=== PATIENT | female | born 1990 | race African-American/Black ===

== ENCOUNTER 2017-06-07 10:51 | Emergency (ER) | payer OTHER ==
[~2017-06-07] VITALS: Ht 170.2 cm; Wt 190.0 kg
[~2017-06-07 10:51] MED LIST: HYDR-3533 PO
[2017-06-07 10:55] VITALS: BP 185/84; PULSE 82; RESP 24; TEMP 98.2; O2SAT 98
--- NOTE | 2017-06-07 11:54 | RADRPT ---
EXAM DATE/TIME: 06/07/2017 11:24 [facility] COMPARISON: CHEST SINGLE AP, June 07, 2015, 2:41. INDICATIONS : Chest pain. Dizziness. MEDICAL HISTORY : None. SURGICAL HISTORY : None. ENCOUNTER: Initial ACUITY: 1 day PAIN SCORE: 3/10 LOCATION: Bilateral chest FINDINGS: The heart is enlarged. Mild increased perihilar interstitial markings are noted consistent with mild pulmonary vascular congestion versus viral pneumonitis. Clinical correlation is recommended. There is elevation of the right hemidiaphragm. CONCLUSION: 1. Mild cardiomegaly. 2. Mild increased perihilar interstitial markings consistent with mild pulmonary vascular congestion versus viral pneumonitis. Clinical correlation is recommended. Jorge Velez MD on June 07, 2017 at 11:27 Board Certified Radiologist. This report was verified electronically.
[2017-06-07] MEDS ORDERED: SODIUM CHLOR 0.9% 1000 ML INJ 1,000 ML IV SCH (12:16)
--- NOTE | 2017-06-07 12:19 | PD ---
HPI Chief Complaint: Complaint Time Seen by Provider: 12:10 Travel History International Travel<30 days: No Contact w/Intl Traveler<30days: No Traveled to known affect area: No History of Present Illness HPI This is a 26-year-old female presents for evaluation. For the past 2 weeks she has been experiencing left-sided chest pain. The pain is a sharp pain that comes and goes spontaneously with no obvious aggravating or relieving factors. She was seen at [facility] she was told that this is likely muscle skeletal pain. She was prescribed naproxen. She was also given Cipro for presumed UTI. Her chest pain has persisted which prompted evaluation today. She denies cough, congestion or shortness of breath. She also reports that 3 days ago she was going to the bathroom when she passed a clot of blood vaginally. This only happened once and she is had no vaginal bleeding since then. She denies any dysuria, abdominal pain, nausea or vomiting, hematochezia , black or tarry stools. She reports that her last missed her period was 1.5 months ago. She has no other complaints at this time. [facility] Past Medical History Asthma: Yes Cancer: No Cardiovascular Problems: No Diminished Hearing: No Endocrine: No Genitourinary: No Immune Disorder: No Musculoskeletal: No Neurologic: No Psychiatric: No Reproductive: No Respiratory: Yes (ASTHMA) ?: Unknown : 0 Past Surgical History Cholecystectomy: Yes Pacemaker: No Other Surgery: No Social History Alcohol Use: No Tobacco Use: No Substance Use: No Allergies-Medications (Allergen,Severity, Reaction): Coded Allergies: No Known Allergies (Verified , 06/07/17) Reported Meds & Prescriptions Reported Meds & Active Scripts Active No Active Prescriptions or Reported Medications Review of Systems Except as stated in HPI: all other systems reviewed are Neg Physical Exam Narrative GENERAL: This is an obese female who is in no acute distress. Her BMI 65.6. SKIN: Warm and dry. HEAD: Atraumatic. Normocephalic. EYES: Pupils equal and round. No scleral icterus. No injection or drainage. ENT: No nasal bleeding or discharge. Mucous membranes pink and moist. NECK: Trachea midline. No JVD. CARDIOVASCULAR: Regular rate and rhythm. No murmur appreciated. RESPIRATORY: No accessory muscle use. Clear to auscultation. Breath sounds equal bilaterally. GASTROINTESTINAL: Abdomen soft, non-tender, nondistended. Hepatic and splenic margins not palpable. MUSCULOSKELETAL: No obvious deformities. There is tenderness to palpation to the left anterior chest wall. There is no lower extremity edema. NEUROLOGICAL: Awake and alert. No obvious cranial nerve deficits. Motor grossly within normal limits. Normal speech. PSYCHIATRIC: Appropriate mood and affect; insight and judgment normal. Data Data Last Documented VS Vital Signs Date Time Temp Pulse Resp B/P Pulse Ox O2 Delivery O2 Flow Rate FiO2 06/07/17 10:55 98.2 82 24 185/84 98 Room Air Orders Electrocardiogram (06/07/17 11:04) Complete Blood Count With Diff (06/07/17 11:04) Basic Metabolic Panel (Bmp) (06/07/17 11:04) Ckmb (Isoenzyme) Profile (06/07/17 11:04) Troponin I (06/07/17 11:04) Chest, Single Ap (06/07/17 11:04) Urinalysis - C+S If Indicated (06/07/17 12:12) Ed Urine Pregnancytest Poc (06/07/17 12:12) D-Dimer (06/07/17 12:16) Ketorolac Inj (Toradol Inj) (06/07/17 12:30) Sodium Chlor 0.9% 1000 Ml Inj (Ns 1000 M (06/07/17 12:16) B-Type Natriuretic Peptide (06/07/17 12:19) CKMB (06/07/17 12:05) CKMB% (06/07/17 12:05) Labs Laboratory Tests Test 06/07/17 06/07/17 12:05 13:30 White Blood Count 7.4 TH/MM3 Red Blood Count 5.11 MIL/MM3 Hemoglobin 12.9 GM/DL Hematocrit 40.4 % Mean Corpuscular Volume 79.0 FL Mean Corpuscular Hemoglobin 25.3 PG Mean Corpuscular Hemoglobin 32.0 % Concent Red Cell Distribution Width 15.2 % Platelet Count 205 TH/MM3 Mean Platelet Volume 8.1 FL Neutrophils (%) (Auto) 51.8 % Lymphocytes (%) (Auto) 34.2 % Monocytes (%) (Auto) 6.3 % Eosinophils (%) (Auto) 6.9 % Basophils (%) (Auto) 0.8 % Neutrophils # (Auto) 3.8 TH/MM3 Lymphocytes # (Auto) 2.5 TH/MM3 Monocytes # (Auto) 0.5 TH/MM3 Eosinophils # (Auto) 0.5 TH/MM3 Basophils # (Auto) 0.1 TH/MM3 CBC Comment DIFF FINAL Differential Comment D-Dimer Quantitative (PE/DVT) 0.41 MG/L FEU Sodium Level 141 MEQ/L Potassium Level 3.7 MEQ/L Chloride Level 105 MEQ/L Carbon Dioxide Level 28.1 MEQ/L Anion Gap 8 MEQ/L Blood Urea Nitrogen 10 MG/DL Creatinine 0.67 MG/DL Estimat Glomerular Filtration 130 ML/MIN Rate Random Glucose 96 MG/DL Calcium Level 8.9 MG/DL Total Creatine Kinase 133 U/L Creatine Kinase MB 0.5 NG/ML Troponin I LESS THAN 0.02 NG/ML B-Type Natriuretic Peptide 36 PG/ML Urine Color YELLOW Urine Turbidity HAZY Urine pH 6.0 Urine Specific [place] 1.018 Urine Protein NEG mg/dL Urine Glucose (UA) NEG mg/dL Urine Ketones NEG mg/dL Urine Occult Blood NEG Urine Nitrite NEG Urine Bilirubin NEG Urine Urobilinogen LESS THAN 2.0 MG/DL Urine Leukocyte Esterase MOD Urine RBC 1 /hpf Urine WBC 8 /hpf Urine Squamous Epithelial 7 /hpf Cells Urine Bacteria RARE /hpf Urine Mucus FEW /lpf Microscopic Urinalysis Comment CULT NOT INDICATED MDM Medical Decision Making Medical Screen Exam Complete: Yes Emergency Medical Condition: Yes Medical Record Reviewed: Yes Differential Diagnosis Costochondritis, pleurisy, pericarditis, myocarditis, pulmonary embolism, spontaneous pneumothorax, acute coronary syndrome Narrative Course 26-year-old female with reproducible left-sided chest wall pain for 3 weeks. She noted some vaginal bleeding one time 3 days ago with some clots noted. No recurrent vaginal bleeding. She appears well. She is morbidly obese. Plan is for basic lab work, EKG, chest x-ray, urinalysis and she was given Toradol and IV fluids. Her chest x-ray reveals mild cardiomegaly and mild increased perihilar interstitial markings consistent with mild pulmonary vascular congestion versus viral pneumonitis. A BNP was added on and was negative. The patient has been stable during her hospital stay. Her lab work is unremarkable. At this point in time the plan will be to have the patient follow -up with primary care physician in regards to the mild cardiomegaly, likely from patient echocardiogram. I did discuss this with the patient is agreeable. She is stable for discharge. Diagnosis Primary Impression: Chest wall pain Additional Impression: Cardiomegaly Additional Instructions: Take [id number] naproxen or ibuprofen as needed for discomfort per dosing instructions on the bottle. As discussed, follow-up with primary care physician regarding the finding of mild cardiomegaly on chest x-ray. Return for any emergent medical conditions. Med/Other Pt SpecificInfo: No Change to Meds Scripts No Active Prescriptions or Reported Meds Disposition: 01 DISCHARGE HOME Condition: Stable Steven Swenson Jun 07, 2017 12:19
[2017-06-07 12:20] LABS: AUTOMATED NEUTROPHIL # 3.8 TH/MM3 (1.8-7.7); BASOPHIL # 0.1 TH/MM3 (0-0.2); BASOPHIL % 0.8 % (0.0-2.0); EOSINOPHIL # 0.5 TH/MM3 (0-0.4); EOSINOPHIL % 6.9 % (0.0-4.0); HEMATOCRIT 40.4 % (35.0-46.0); HEMO FLAGS DIFF FINAL; LYMPH % 34.2 % (9.0-44.0); LYMPHOCYTE # 2.5 TH/MM3 (1.0-4.8); MEAN CORPUSCULAR HEMOGLOBIN 25.3 PG (27.0-34.0); MONO % 6.3 % (0.0-8.0); NEUT % 51.8 % (16.0-70.0); PLATELET COUNT 205 TH/MM3 (150-450); RED BLOOD COUNT 5.11 MIL/MM3 (4.00-5.30); RED CELL DISTRIBUTION WIDTH 15.2 % (11.6-17.2); WHITE BLOOD COUNT 7.4 TH/MM3 (4.0-11.0)
[2017-06-07] MEDS ORDERED: KETOROLAC TROMETHAMINE 30 MG/ML (IVP) VIAL IV PUSH ONE (12:30)
[2017-06-07 12:46] LABS: ANION GAP 8 MEQ/L (5-15); BICARBONATE 28.1 MEQ/L (21.0-32.0); BLOOD UREA NITROGEN 10 MG/DL (7-18); CHLORIDE 105 MEQ/L (98-107); GLOMERULAR FILTRATION RATE 130 ML/MIN (>89); POTASSIUM 3.7 MEQ/L (3.5-5.1); SODIUM (NA) 141 MEQ/L (136-145)
[2017-06-07 12:49] LABS: CREATINE KINASE 133 U/L (26-192)
[2017-06-07 13:02] LABS: CKMB 0.5 NG/ML (0.5-3.6)
[2017-06-07 14:15] LABS: BACTERIA, URINE RARE /hpf; BLOOD, URINE NEG (NEG); COMMENT (UR) CULT NOT INDICATED; CULTURE IF INDICATED CULT NOT INDICATED; GLUCOSE,URINE NEG (NEG); KETONE, URINE NEG (NEG); MUCUS URINE FEW /lpf (OCC); NITRITE,URINE NEG (NEG); SQUAMOUS EPITHELIAL CELL URINE 7 /hpf (0-5); URINE COLOR YELLOW (YELLW/STRAW)
--- NOTE | 2017-06-08 12:04 | EKG ---
Date Performed: 06/07/2017 Time Performed: 11:44:40 PTAGE: 26 years EKG: Sinus rhythm NORMAL ECG PREVIOUS TRACING : 06/07/2015 02.36 Compared to prior tracing no significant change DOCTOR: Ezequiel Hernandez Interpretating Date/Time 06/08/2017 12:03:03
== END 2017-06-07 15:09 | disposition home or self-care (01) ==
LOC: NEPE 10:51
DX: R07.89 Other chest pain (principal); I51.7 Cardiomegaly; E66.01 Morbid (severe) obesity due to excess calories; J45.909 Unspecified asthma, uncomplicated
CPT/HCPCS: 71010; 80048; 81001; 82550; 82552; 83880; 84484; 84703; 85025; 85379; 93005; 96361; 96374; 99285; J1885; J7030

== ENCOUNTER 2017-06-16 23:52 | Emergency (ER) | payer OTHER ==
[2017-06-16 23:54] VITALS: BP 143/90; PULSE 109; RESP 24; TEMP 98.5; O2SAT 100
[2017-06-17 00:44] VITALS: O2SAT 100
[2017-06-17 00:49] VITALS: BP 129/73; PULSE 96; RESP 38; O2SAT 100
[2017-06-17 00:55] VITALS: O2SAT 98
[2017-06-17] MEDS ORDERED: RESP: ALBUTEROL 2.5 MG/IPRATROPIUM 0.5 MG NEB (SCH) INH (01:00)
[2017-06-17] MEDS ORDERED: methylPREDNISolone SOD SUCC 125 MG/2 ML VIAL IVP ONE (01:00)
[2017-06-17] MEDS ORDERED: SODIUM CHLORIDE 0.9% FLUSH 10 ML FLUSH IVF PRN (01:00)
[2017-06-17 01:11] LABS: AUTOMATED NEUTROPHIL # 4.4 TH/MM3 (1.8-7.7); BASOPHIL # 0.1 TH/MM3 (0-0.2); EOSINOPHIL # 0.7 TH/MM3 (0-0.4); EOSINOPHIL % 7.5 % (0.0-4.0); HEMATOCRIT 37.8 % (35.0-46.0); HEMO FLAGS DIFF FINAL; LYMPHOCYTE # 3.8 TH/MM3 (1.0-4.8); MEAN CORPUSCULAR HEMOGLOBIN 25.4 PG (27.0-34.0); MEAN CORPUSCULAR HGB CONC 33.1 % (32.0-36.0); MONO % 6.8 % (0.0-8.0); NEUT % 45.7 % (16.0-70.0); PLATELET COUNT 201 TH/MM3 (150-450); RED BLOOD COUNT 4.91 MIL/MM3 (4.00-5.30); RED CELL DISTRIBUTION WIDTH 14.8 % (11.6-17.2); WHITE BLOOD COUNT 9.7 TH/MM3 (4.0-11.0)
[2017-06-17 01:15] VITALS: BP 195/108; PULSE 115; RESP 38; O2SAT 98
[2017-06-17 01:23] VITALS: BP 144/115; PULSE 93; RESP 38; O2SAT 100
[2017-06-17 01:23] LABS: BICARBONATE 27.9 MEQ/L (21.0-32.0); POTASSIUM 3.8 MEQ/L (3.5-5.1)
--- NOTE | 2017-06-17 01:27 | RADRPT ---
EXAM DATE/TIME: 06/17/2017 01:06 [facility] COMPARISON: CHEST SINGLE AP, June 07, 2017, 11:24. INDICATIONS : Shortness of breath starting today MEDICAL HISTORY : None. SURGICAL HISTORY : None. ENCOUNTER: Initial ACUITY: 1 day PAIN SCORE: 0/10 LOCATION: Bilateral chest FINDINGS: A single AP portable erect view of the chest demonstrates the lungs to be symmetrically aerated witho ut evidence of mass, infiltrate or effusion. There is soft tissue attenuation from overlying breast t issue. The cardiomediastinal contours are unremarkable. Osseous structures are intact. CONCLUSION: No acute disease. Roman Coulter MD on June 17, 2017 at 1:25 Board Certified Radiologist. This report was verified electronically.
[2017-06-17] MEDS ORDERED: LORazepam 2 MG/ML VIAL IV PUSH ONE (01:30)
[2017-06-17 01:42] VITALS: PULSE 89; RESP 22; O2SAT 100
[2017-06-17] MEDS ORDERED: ALBUAER3 INH (01:53)
[2017-06-17] MEDS ORDERED: PRED20 PO (01:53)
--- NOTE | 2017-06-17 01:54 | PD ---
HPI Chief Complaint: Respiratory Distress Time Seen by Provider: 00:51 Travel History International Travel<30 days: No Contact w/Intl Traveler<30days: No Traveled to known affect area: No History of Present Illness HPI 36-year-old female arrives with shortness of breath and wheezing. She has a history of asthma. Symptoms began this morning. She was seen in an outside hospital in symptoms improved only marginally thereafter. She does not recall last time she is to steroids. She has no chest pain. Occasional cough is reported by the significant other. Location respiratory. Severity moderate. PFSH Past Medical History Asthma: Yes Cancer: No Cardiovascular Problems: No Diminished Hearing: No Endocrine: No Genitourinary: No Immune Disorder: No Musculoskeletal: No Neurologic: No Psychiatric: No Reproductive: No Respiratory: Yes (ASTHMA) ?: Not LMP: 06/16/17 : 0 Past Surgical History Cholecystectomy: Yes Pacemaker: No Other Surgery: No Social History Alcohol Use: No Tobacco Use: No (never) Substance Use: No Allergies-Medications (Allergen,Severity, Reaction): Coded Allergies: No Known Allergies (Verified , 06/17/17) Reported Meds & Prescriptions Reported Meds & Active Scripts Active Proair Hfa 8.5 GM Inh (Albuterol Sulfate) 90 Mcg/Act Aer 2 Puff INH Q4-6H PRN 108 mcg/actuation Prednisone 20 Mg Tab 40 Mg PO DAILY 4 Days Take 40 mg (2 tablets) daily for 5 days Review of Systems Except as stated in HPI: all other systems reviewed are Neg General / Constitutional: No: Fever Respiratory: Positive: Cough, Shortness of Breath, Wheezing Physical Exam Narrative GENERAL: 26-year-old female BMI greater than 40 respiratory distress of moderate severity speaking short sentences SKIN: Focused skin assessment warm/dry. HEAD: Atraumatic. Normocephalic. EYES: Pupils equal and round. No scleral icterus. No injection or drainage. ENT: No nasal bleeding or discharge. Mucous membranes pink and moist. NECK: Trachea midline. No JVD. CARDIOVASCULAR: Tachycardia to about 100. RESPIRATORY: Wheezing present bilaterally. Tachypnea to about 30. GASTROINTESTINAL: Abdomen soft, non-tender, nondistended. Hepatic and splenic margins not palpable. MUSCULOSKELETAL: No obvious deformities. No clubbing. No cyanosis. No edema. NEUROLOGICAL: Awake and alert. No obvious cranial nerve deficits. Motor grossly within normal limits. Normal speech. PSYCHIATRIC: Appropriate mood and affect; insight and judgment normal. Data Data Last Documented VS Vital Signs Date Time Temp Pulse Resp B/P Pulse Ox O2 Delivery O2 Flow Rate FiO2 06/17/17 01:42 89 22 100 Nasal Cannula 06/17/17 01:23 144/115 2 06/17/17 00:44 21 06/16/17 23:54 98.5 Vital signs reviewed Orders Complete Blood Count With Diff (06/17/17 00:51) Basic Metabolic Panel (Bmp) (06/17/17 00:51) Iv Access Insert/Monitor (06/17/17 00:51) Electrocardiogram (06/17/17 00:51) Ecg Monitoring (06/17/17 00:51) Oximetry (06/17/17 00:51) Oxygen Administration (06/17/17 00:51) Chest, Single Ap (06/17/17 00:51) Sodium Chloride 0.9% Flush (Ns Flush) (06/17/17 01:00) Methylprednisolone So Succ Inj (Solumedr (06/17/17 01:00) Albuterol-Ipratropium Neb (Duoneb Neb) (06/17/17 01:00) Lorazepam Inj (Ativan Inj) (06/17/17 01:30) Albuterol Hfa Inh (Proair Hfa Inh) (06/17/17 02:15) Labs Laboratory Tests Test 06/17/17 00:35 White Blood Count 9.7 TH/MM3 Red Blood Count 4.91 MIL/MM3 Hemoglobin 12.5 GM/DL Hematocrit 37.8 % Mean Corpuscular Volume 77.0 FL Mean Corpuscular Hemoglobin 25.4 PG Mean Corpuscular Hemoglobin 33.1 % Concent Red Cell Distribution Width 14.8 % Platelet Count 201 TH/MM3 Mean Platelet Volume 9.1 FL Neutrophils (%) (Auto) 45.7 % Lymphocytes (%) (Auto) 39.0 % Monocytes (%) (Auto) 6.8 % Eosinophils (%) (Auto) 7.5 % Basophils (%) (Auto) 1.0 % Neutrophils # (Auto) 4.4 TH/MM3 Lymphocytes # (Auto) 3.8 TH/MM3 Monocytes # (Auto) 0.7 TH/MM3 Eosinophils # (Auto) 0.7 TH/MM3 Basophils # (Auto) 0.1 TH/MM3 CBC Comment DIFF FINAL Differential Comment Sodium Level 140 MEQ/L Potassium Level 3.8 MEQ/L Chloride Level 104 MEQ/L Carbon Dioxide Level 27.9 MEQ/L Anion Gap 8 MEQ/L Blood Urea Nitrogen 12 MG/DL Creatinine 0.67 MG/DL Estimat Glomerular Filtration 130 ML/MIN Rate Random Glucose 91 MG/DL Calcium Level 8.9 MG/DL MDM Medical Decision Making Medical Screen Exam Complete: Yes Emergency Medical Condition: Yes Medical Record Reviewed: Yes Differential Diagnosis Asthma exacerbation, pneumonia, anemia, renal failure, restrictive airway disease due to body habitus Narrative Course CBC & BMP Diagram 06/17/17 00:35 Last 24 hours Impressions Chest X-Ray 06/17/17 0051 Signed Impressions: Service Date/Time: , June 17, 2017 01:06 - CONCLUSION: No acute disease. Roman Coulter MD Patient reassessed at 1:30 AM and was found resting comfortably. She had received 0.5 mg IV Ativan and felt much better. 2 rounds DuoNeb and 125 mg IV Solu-Medrol given. 0220: Continued improvement observed. The patient has follow-up with Dr. Alejandro Justin. We'll discharge with prednisone and albuterol inhaler. Diagnosis Primary Impression: Asthma Qualified Code: J45.909 - Uncomplicated asthma, unspecified asthma severity Referrals: Primary Care Physician 2 days Additional Instructions: You have a choice when it comes to health care, and we are glad that you chose [facility]. Hopefully, we have met your expectations on today's visit. You are welcome to return to [facility] at any time, as we are committed to meeting the health care needs of our community. Med/Other Pt SpecificInfo: Prescription(s) given Scripts Albuterol 8.5 GM Inh (Proair Hfa 8.5 GM Inh)90 Mcg/Act Aer2 Puff INH Q4-6H PRN ( SHORTNESS OF BREATH) #1 INHALER Ref 0 108 mcg/actuation Prov:Kenroy Romeo MD 06/17/17 Prednisone 20 Mg Tab40 Mg PO DAILY 4 Days Ref 0 Take 40 mg (2 tablets) daily for 5 days Prov:Kenroy Romeo MD 06/17/17 Disposition: 01 DISCHARGE HOME Condition: Stable Kenroy Romeo MD Jun 17, 2017 01:54
[2017-06-17] MEDS ORDERED: ALBUTEROL SULFATE 90 MCG/ACT HFA 8 GM INHALER INH ONE (02:15)
--- NOTE | 2017-06-17 14:55 | EKG ---
Date Performed: 06/17/2017 Time Performed: 00:47:28 PTAGE: 26 years EKG: SINUS TACHYCARDIA ABNORMAL RHYTHM ECG PREVIOUS TRACING : 06/07/2017 11.44 Since previous tracing, no significant change noted DOCTOR: Emily Oliver Interpretating Date/Time 06/17/2017 14:54:16
== END 2017-06-17 02:56 | disposition home or self-care (01) ==
LOC: NEPE 23:52
DX: J45.909 Unspecified asthma, uncomplicated (principal)
CPT/HCPCS: 71010; 80048; 85025; 93005; 94640; 94664; 96374; 96375; 99285; J2060; J2930

== ENCOUNTER 2017-08-17 23:35 | Emergency (ER) | payer OTHER ==
[~2017-08-17] VITALS: Ht 170.2 cm; Wt 220.0 kg
[~2017-08-17 23:35] MED LIST changes: +ALBUAER3 INH; -HYDR-3533 PO; +PRED20 PO
[2017-08-17 23:37] VITALS: BP 174/100; PULSE 108; PULSE 18; RESP 20; TEMP 98.4; O2SAT 99
[2017-08-17] MEDS ORDERED: CYCL1TAB29 PO (23:55)
[2017-08-17] MEDS ORDERED: DICL75TA PO (23:55)
--- NOTE | 2017-08-17 23:58 | PD ---
HPI Chief Complaint: Back/ Neck Pain or Injury Time Seen by Provider: 23:50 Travel History International Travel<30 days: No Contact w/Intl Traveler<30days: No Traveled to known affect area: No History of Present Illness HPI 26-year-old black female presents to emergency Department with complaints of back pain. She states that for last 2 weeks she's had persistent lower back pain worse with bending and movement. Some relief of remaining still. She denies any injury or trauma. She denies any prior history of back problems. She also goes on to state that she had a sore throat earlier and had an episode of vomiting a couple days ago. She states that the vomiting has subsided and her throat is improving. She denies any fever or chills. No abdominal pain or urinary symptoms. She does report the pain radiating from her back into her hips. [facility] Past Medical History Narrative Medical Asthma Asthma: Yes Cancer: No Cardiovascular Problems: No Diminished Hearing: No Endocrine: No Genitourinary: No Immune Disorder: No Musculoskeletal: No Neurologic: No Psychiatric: No Reproductive: No Respiratory: Yes (ASTHMA) Tetanus Vaccination: < 5 Years ?: Unknown LMP: 05/15/2017 : 0 Past Surgical History Cholecystectomy: Yes Pacemaker: No Other Surgery: No Social History Alcohol Use: No Tobacco Use: No (never) Substance Use: No Allergies-Medications (Allergen,Severity, Reaction): Coded Allergies: No Known Allergies (Verified , 08/17/17) Reported Meds & Prescriptions Reported Meds & Active Scripts Active Flexeril (Cyclobenzaprine HCl) 10 Mg Tab 10 Mg PO TID Diclofenac Sodium DR (Diclofenac Sodium) 75 Mg Tabdr 75 Mg PO BID Review of Systems Except as stated in HPI: all other systems reviewed are Neg Physical Exam Narrative GENERAL: Well-developed, morbidly obese in no acute distress. Nontoxic appearing. HEAD: Normocephalic, atraumatic. EYES: Pupils equal round and reactive. Extraocular motions intact. No scleral icterus. No injection or drainage. ENT: TMs clear without erythema. The external auditory canals clear. Nose: clear . Posterior pharynx is pink and moist. No tonsillar edema or exudate. Uvula midline. Airway patent. NECK: Trachea midline.Supple, nontender, moves head freely. No central bony tenderness or spasm. CARDIOVASCULAR: Regular rate and rhythm without murmurs, gallops, or rubs. RESPIRATORY: Clear to auscultation. Breath sounds equal bilaterally. No wheezes , rales, or rhonchi. GASTROINTESTINAL: Abdomen soft, non-tender, nondistended. No hepato-splenomegaly , or palpable masses. No guarding. EXTREMITIES: No clubbing, cyanosis, or edema. No joint tenderness, effusion, or edema noted. BACK: No central bony tenderness to palpation of dorsal lumbar spine. Patient complains of paralumbar tenderness more so on the left than the right. She has decreased for flexion to 70. No saddle anesthesia. Without deformity or crepitance. No flank tenderness. Data Data Last Documented VS Vital Signs Date Time Temp Pulse Resp B/P (MAP) Pulse Ox O2 Delivery O2 Flow Rate FiO2 08/17/17 23:37 98.4 108 20 174/100 (124) 99 Orders Orders Ibuprofen (Motrin) (08/18/17 00:00) Cyclobenzaprine (Flexeril) (08/18/17 00:00) MDM Medical Decision Making Medical Screen Exam Complete: Yes Emergency Medical Condition: Yes Medical Record Reviewed: Yes Differential Diagnosis MDM: High Differential diagnoses: AAA,Fracture, sprain, strain, HNP, nerve or vascular injury, epidural abscess, pilonidal cyst, pyelonephritis, UTI, nephrolithiasis, ureterolithiasis, pharyngitis Narrative Course Patient's given Motrin 800 mg and Flexeril 10 mg by mouth. Her pharynx looks normal. Patient has myofascial back pain. Patient is discharged in stable condition. This is acute back pain, viral pharyngitis Diagnosis Primary Impression: Acute back pain Qualified Codes: M54.42 - Lumbago with sciatica, left side; M54.41 - Lumbago with sciatica, right side Additional Impression: Viral pharyngitis Patient Instructions: General Instructions Additional Instructions: Rest. Ice for the next 3 days followed by heat . Flexeril and Voltaren. Follow-up with a primary care doctor in one week. Return to the ER for emergencies. Med/Other Pt SpecificInfo: Prescription(s) given Scripts Cyclobenzaprine (Flexeril) 10 Mg Tab 10 MG PO TID for Muscle Spasm, #30 TAB 0 Refills Prov: Francisco J Baird MD 08/17/17 Diclofenac Sodium (Diclofenac Sodium DR) 75 Mg Tabdr 75 MG PO BID, #20 TAB 0 Refills Prov: Francisco J Baird MD 08/17/17 Disposition: 01 DISCHARGE HOME Condition: Stable Audi Merrill Aug 17, 2017 23:58
[2017-08-18] MEDS ORDERED: CYCLOBENZAPRINE HCL 10 MG TAB PO ONE
[2017-08-18] MEDS ORDERED: IBUPROFEN 800 MG TAB PO ONE
== END 2017-08-18 00:16 | disposition home or self-care (01) ==
LOC: NEPK 23:35
DX: M54.41 Lumbago with sciatica, right side (principal); M54.42 Lumbago with sciatica, left side; J02.8 Acute pharyngitis due to other specified organisms; B97.89 Other viral agents as the cause of diseases classified elsewhere
CPT/HCPCS: 99283

== ENCOUNTER 2017-08-23 20:57 | Emergency (ER) | payer OTHER ==
[~2017-08-23] VITALS: Ht 170.2 cm; Wt 216.0 kg
[~2017-08-23 20:57] MED LIST changes: -ALBUAER3 INH; +CYCL1TAB29 PO; +DICL75TA PO; -PRED20 PO
[2017-08-23 20:59] VITALS: BP 154/90; PULSE 108; RESP 18; TEMP 98.6; O2SAT 96
[2017-08-23] MEDS ORDERED: KETOROLAC TROMETHAMINE 60 MG/2 ML (IM) VIAL IM ONE (22:45)
--- NOTE | 2017-08-23 23:08 | PD ---
HPI Chief Complaint: Edema Time Seen by Provider: 22:25 Travel History International Travel<30 days: No Contact w/Intl Traveler<30days: No Traveled to known affect area: No History of Present Illness HPI 26-year-old female that presents to the ED for evaluation of bilateral ankle pain with swelling. Per patient she's had this for about 2 weeks now. Per patient is hard to walk especially on the left leg. She has been taking over- the-counter remedies with minimal relief. She denies any falls or injuries. She states that the pain is 8 out of 10 especially when she puts weight on them. She denies any prior injuries or fractures to the area. She states that progressively has becoming more severe. Patient states that even at work she has more pain. She has no allergies to medication. No chest pain. No headache. No back pain. No numbness, tilling, weakness. PFSH Past Medical History Asthma: Yes Cancer: No Cardiovascular Problems: No Diminished Hearing: No Endocrine: No Genitourinary: No Immune Disorder: No Musculoskeletal: No Neurologic: No Psychiatric: No Reproductive: No Respiratory: Yes (asthma) ?: Not LMP: current : 0 Past Surgical History Cholecystectomy: Yes Pacemaker: No Other Surgery: No Social History Alcohol Use: No Tobacco Use: No (never) Substance Use: No Allergies-Medications (Allergen,Severity, Reaction): Coded Allergies: No Known Allergies (Verified , 08/23/17) Reported Meds & Prescriptions Reported Meds & Active Scripts Active Flexeril (Cyclobenzaprine HCl) 10 Mg Tab 10 Mg PO TID Diclofenac Sodium DR (Diclofenac Sodium) 75 Mg Tabdr 75 Mg PO BID Review of Systems Except as stated in HPI: all other systems reviewed are Neg Physical Exam Narrative GENERAL: SKIN: Warm and dry. HEAD: Atraumatic. Normocephalic. EYES: Pupils equal and round. No scleral icterus. No injection or drainage. ENT: No nasal bleeding or discharge. Mucous membranes pink and moist. Tongue is midline. No uvula deviation. NECK: Trachea midline. No JVD. CARDIOVASCULAR: Regular rate and rhythm. No murmurs, S3, S4. RESPIRATORY: No accessory muscle use. Clear to auscultation. Breath sounds equal bilaterally. GASTROINTESTINAL: Abdomen soft, non-tender, nondistended. Hepatic and splenic margins not palpable. MUSCULOSKELETAL: Extremities without clubbing, cyanosis, or edema. No obvious deformities. Full range of motion of the upper and lower extremities bilaterally. No obvious lateral or medial malleolar pain bilaterally. 1+ pitting edema on the lower extremities bilaterally. 2+ pulses bilaterally. Full range of motion of the ankles bilaterally. Slight limping with weightbearing. NEUROLOGICAL: Awake and alert. No obvious cranial nerve deficits. Motor grossly within normal limits. Five out of 5 muscle strength in the arms and legs. Normal speech. PSYCHIATRIC: Appropriate mood and affect; insight and judgment normal. Data Data Last Documented VS Vital Signs Date Time Temp Pulse Resp B/P (MAP) Pulse Ox O2 Delivery O2 Flow Rate FiO2 08/23/17 20:59 98.6 108 18 154/90 (111) 96 Room Air Orders Orders Ankle, Complete ([id number]) (08/23/17 22:41) Ankle, Complete ([id number]) (08/23/17 ) Us Leg Venous Doppler Bilat (08/23/17 ) Ketorolac Inj (Toradol Inj) (08/23/17 22:45) Splint Or Brace Apply/Monitor (08/23/17 22:55) Brace Ankle Stirrup (08/23/17 ) Brace Ankle Stirrup (08/23/17 ) MDM Medical Decision Making Medical Screen Exam Complete: Yes Emergency Medical Condition: Yes Medical Record Reviewed: Yes Interpretation(s) X-rays of the ankles bilaterally was negative. Ultrasound was negative for acute disease read by radiologist. Differential Diagnosis Ankle pain versus ankle sprain versus acute on chronic pain versus chronic pain versus DVT Narrative Course 26-year-old female that presents to the ED for evaluation of ankle pain. Patient was properly examined and was found to have signs and symptoms. The etiology. Appears to be more musculoskeletal. Patient does have some pain on the medial aspect of the ankles bilaterally does not upper touch but only with weightbearing. My attending recommended ultrasound. This was ordered. X-rays were ordered to make sure patient does not have any sign of stress fracture or bony deformity causing the discomfort. Imaging was essentially negative. Patient was reassured. Patient was given braces. Given prescription for diclofenac sodium. Ice or warm compresses. Close follow with orthopedic surgeon. See ED worsening symptoms. Diagnosis Primary Impression: Ankle sprain Qualified Codes: S93.409A - Sprain of unspecified ligament of unspecified ankle, initial encounter Patient Instructions: General Instructions Departure Forms: Tests/Procedures, Work Release Enter return to work date: Aug 27, 2017 Additional Instructions: Take medications as prescribed. Follow-up with PCP. See ED for any worsening symptoms. Do not drink or drive while taking pain medication. Apply ice or heat as needed for pain. Follow with her primary care doctor orthopedic doctor discontinues to be a problem. Keep off you legs for the next couple days until better. Med/Other Pt SpecificInfo: Prescription(s) given Scripts Diclofenac Sodium DR (Diclofenac Sodium DR) 75 Mg Tabdr 75 MG PO BID Y for PAIN SCALE 1 TO 10, #20 TAB 0 Refills Prov: Francisco J Baird MD 08/24/17 Disposition: 01 DISCHARGE HOME Condition: Jordi Ivan Aug 23, 2017 23:08
--- NOTE | 2017-08-23 23:31 | RADRPT ---
EXAM DATE/TIME: 08/23/2017 23:05 [facility] COMPARISON: No previous studies available for comparison. INDICATIONS : Left ankle pain and swelling from unknown injury. MEDICAL HISTORY : None. SURGICAL HISTORY : None. ENCOUNTER: Initial ACUITY: 1 day PAIN SCORE: 6/10 LOCATION: Left ankle. FINDINGS: Three view exam was performed of the left ankle. The bony structures are in normal alignment. No ev idence of fracture, dislocation, or soft tissue swelling. The ankle mortise is intact. No radiopaqu e foreign bodies are seen. Bony mineralization is normal. CONCLUSION: Unremarkable examination of the left ankle. Tano Ryder MD on August 23, 2017 at 23:28 Board Certified Radiologist. This report was verified electronically.
--- NOTE | 2017-08-23 23:36 | RADRPT ---
EXAM DATE/TIME: 08/23/2017 23:07 [facility] COMPARISON: No previous studies available for comparison. INDICATIONS : Right ankle pain and swelling from unknown injury. MEDICAL HISTORY : None. SURGICAL HISTORY : None. ENCOUNTER: Initial ACUITY: 1 day PAIN SCORE: 6/10 LOCATION: Right ankle. FINDINGS: Three view exam was performed of the right ankle. The bony structures are in normal alignment. No e vidence of fracture, dislocation, or soft tissue swelling. The ankle mortise is intact. No radiopaq ue foreign bodies are seen. Bony mineralization is normal. CONCLUSION: Unremarkable examination of the right ankle. Tano Ryder MD on August 23, 2017 at 23:29 Board Certified Radiologist. This report was verified electronically.
--- NOTE | 2017-08-24 00:12 | RADRPT ---
EXAM DATE/TIME: 08/23/2017 23:16 [facility] COMPARISON: CHEST SINGLE AP, June 17, 2017, 1:06. ANKLE RIGHT COMPLETE ([id number]), August 23, 2017, 23:07. INDICATIONS : Bilateral leg swelling. MEDICAL HISTORY : Asthma. SURGICAL HISTORY : Cholecystectomy. ENCOUNTER: Initial ACUITY: 2 day PAIN SCORE: 3/10 LOCATION: Bilateral leg. TECHNIQUE: Venous ultrasound of the left and right leg was performed from the inguinal ligament to the proximal calf. Real-time, color Doppler and spectral tracing, compression and augmentation techniques were us ed. FINDINGS: The study is significantly limited by patient body habitus. Color flow is visualized in the iliac, co mmon femoral, superficial femoral and popliteal veins bilaterally, however compression evaluation cou ld not be performed in dedicated fashion on this patient. CONCLUSION: Technically limited examination grossly negative for bilateral lower extremity DVT Tano Ryder MD on August 24, 2017 at 0:03 Board Certified Radiologist. This report was verified electronically.
[2017-08-24] MEDS ORDERED: DICL75TA PO (00:16)
== END 2017-08-24 00:45 | disposition home or self-care (01) ==
LOC: NEPD 20:57
DX: S93.409A Sprain of unspecified ligament of unspecified ankle, initial encounter (principal); M25.571 Pain in right ankle and joints of right foot; M25.572 Pain in left ankle and joints of left foot; R60.0 Localized edema; Z87.09 Personal history of other diseases of the respiratory system; X58.XXXA Exposure to other specified factors, initial encounter
CPT/HCPCS: 73610; 93970; 96372; 99285; J1885; L1906

== ENCOUNTER 2017-09-09 13:04 | Inpatient (IN) | payer OTHER ==
[~2017-09-09] VITALS: Ht 170.2 cm; Wt 219.0 kg
[2017-09-09 13:05] VITALS: BP 139/97; PULSE 118; RESP 20; TEMP 98.6; O2SAT 98
[2017-09-09] MEDS ORDERED: POTA10CA PO (13:19)
[2017-09-09] MEDS ORDERED: VENTAER INH (13:19)
[2017-09-09] MEDS ORDERED: DOXY100C PO (13:19)
[2017-09-09] MEDS ORDERED: FURO20TA PO (13:19)
[2017-09-09] MEDS ORDERED: RANI150T PO (13:19)
[2017-09-09] MEDS ORDERED: ALBU.5I NEB (13:19)
[2017-09-09] MEDS ORDERED: PIPERACIL-TAZO 4.5 GM PREMIX 100 ML IV STA (13:33)
[2017-09-09] MEDS ORDERED: VANCOMYCIN INJ 1,000 MG in SODIUM CHLOR 0.9% 250 ML INJ 250 ML IV STA (13:33)
--- NOTE | 2017-09-09 13:39 | PD ---
HPI Chief Complaint: Skin Problem Time Seen by Provider: 13:28 Travel History International Travel<30 days: No Contact w/Intl Traveler<30days: No Traveled to known affect area: No History of Present Illness HPI Patient comes in after being seen her primary care doctor just shortly prior to arrival. Patient has been on doxycycline times one week for cellulitis right lower extremity is not getting any better. Patient states started off with bilateral lower extremity edema and her primary care doctor started her on a water pill and this seemed to help with left lower extremity , but not on the right. Patient since has been on doxycycline for cellulitis of the right lower extremity 1 week. Patient states cellulitis is not getting any better and feels like is getting worse. Patient complaining of achy pain throughout her right leg. It starts her ankle moves proximally. Pain is worse with palpation and pain is greatest over right medial thigh distally. Denies anything better. Denies any fevers, chest pain, shortness of breath, cough, fevers, abdominal pain, loss or change in bowel or bladder, or headaches. PFSH Past Medical History Asthma: Yes Cancer: No Cardiovascular Problems: No Diminished Hearing: No Endocrine: No Gastrointestinal Disorders: Yes GERD: Yes Genitourinary: No Immune Disorder: No Musculoskeletal: No Neurologic: No Psychiatric: No Reproductive: No Respiratory: Yes (asthma) Tetanus Vaccination: < 5 Years ?: Not LMP: 09/09/17 : 0 Past Surgical History Cholecystectomy: Yes Pacemaker: No Other Surgery: No Social History Alcohol Use: No Tobacco Use: No (never) Substance Use: No Allergies-Medications (Allergen,Severity, Reaction): Coded Allergies: No Known Allergies (Verified , 09/09/17) Reported Meds & Prescriptions Reported Meds & Active Scripts Active Reported Ventolin Hfa 18 GM Inh (Albuterol Sulfate) 90 Mcg/Act Aer 2 Puff INH Q4-6H PRN Ranitidine (Ranitidine HCl) 150 Mg Tab 150 Mg PO BID Potassium Chloride ER (Potassium Chloride) 10 Meq Cap 10 Meq PO DAILY Furosemide 20 Mg Tab 20 Mg PO DAILY Doxycycline Hyclate 100 Mg Cap 100 Mg PO BID Albuterol Neb (Albuterol Sulfate) 2.5 Mg/0.5 Ml Neb 2.5 Mg NEB Q4HR NEB PRN Note: The Albuterol Sulfate Inhalation Solution is concentrated and must be diluted. Read complete instructions carefully before using. Review of Systems Except as stated in HPI: all other systems reviewed are Neg Physical Exam Narrative GENERAL: Well-developed, overly nourished, in no acute distress, and non-ill appearing. SKIN: Erythematous, indurated, tender right medial distal thigh patient reports is tender to palpation. There is no crepitus or fluctuation noted. Right distal majano/ankle is slightly febrile compared to the left without erythematous and patient reports tenderness to palpation. There is no crepitus or induration. HEAD: Atraumatic. Normocephalic. EYES: Pupils equal and round. EOMI. No scleral icterus. No injection or drainage. ENT: No nasal bleeding or discharge. Mucous membranes pink and moist. NECK: Trachea midline. Supple. No nuclear rigidity. CARDIOVASCULAR: Regular rate and rhythm. No murmur appreciated. Dorsal pulses 2+, intact, and equal bilaterally. RESPIRATORY: No accessory muscle use. No respiratory distress. MUSCULOSKELETAL: No obvious deformities. No clubbing. No cyanosis. 1+ nonpitting edema right lower extremity. Full range of motion. NEUROLOGICAL: Awake and alert. No obvious cranial nerve deficits. Motor grossly within normal limits. Normal speech. PSYCHIATRIC: Appropriate mood and affect; insight and judgment normal. Data Data Last Documented VS Vital Signs Date Time Temp Pulse Resp B/P (MAP) Pulse Ox O2 Delivery O2 Flow Rate FiO2 09/09/17 13:49 97 Room Air 09/09/17 13:05 98.6 118 20 Orders Orders Complete Blood Count With Diff (09/09/17 13:33) Comprehensive Metabolic Panel (09/09/17 13:33) Prothrombin Time / Inr (Pt) (09/09/17 13:33) Act Partial Throm Time (Ptt) (09/09/17 13:33) Lactic Acid Sepsis Protocol (09/09/17 13:33) Magnesium (Mg) (09/09/17 13:33) Urinalysis - C+S If Indicated (09/09/17 13:33) Blood Culture (09/09/17 13:33) Blood Glucose (09/09/17 13:33) Ecg Monitoring (09/09/17 13:33) Iv Access Insert/Monitor (09/09/17 13:33) Oximetry (09/09/17 13:33) Oxygen Administration (09/09/17 13:33) Piperacil-Tazo 4.5 Gm Premix (Zosyn 4.5 (09/09/17 13:33) Vancomycin Inj (Vancomycin Inj) (09/09/17 13:33) Us Leg Venous Doppler (09/09/17 13:33) Ed Poc Ultrasound (09/09/17 ) Sodium Chlor 0.9% 1000 Ml Inj (Ns 1000 M (09/09/17 13:45) Place In Observation (09/09/17 ) Code Status (09/09/17 15:12) Vital Signs (Adult) Q4H (09/09/17 15:12) Activity Oob With Assistance (09/09/17 15:12) Diet Regular Basic (09/09/17 Dinner) Sodium Chloride 0.9% Flush (Ns Flush) (09/09/17 15:15) Sodium Chloride 0.9% Flush (Ns Flush) (09/09/17 21:00) Acetaminophen (Tylenol) (09/09/17 15:15) Ondansetron Inj (Zofran Inj) (09/09/17 15:15) Temazepam (Restoril) (09/09/17 21:00) Basic Metabolic Panel (Bmp) (09/10/17 06:00) Complete Blood Count With Diff (09/10/17 06:00) Chest, Single Ap (09/09/17 15:12) Electrocardiogram (09/09/17 15:12) Pt Request For Service (09/09/17 15:12) Enoxaparin Inj (Lovenox Inj) (09/09/17 16:00) Naloxone Inj (Narcan Inj) (09/09/17 15:15) Magnesium Hydroxide Liq (Milk Of Magnesi (09/09/17 15:15) Beta Hcg (Quant/Titer) (09/09/17 15:12) Hemoglobin (Hgb) A1c (09/09/17 15:14) Vancomycin Inj (Vancomycin Inj) (09/10/17 02:00) Pantoprazole (Protonix) (09/09/17 15:30) Albuterol-Ipratropium Neb (Duoneb Neb) (09/09/17 15:30) Admit Order (Ed Use Only) (09/09/17 15:19) Labs Laboratory Tests Test 09/09/17 13:50 White Blood Count 7.6 TH/MM3 Red Blood Count 4.89 MIL/MM3 Hemoglobin 12.1 GM/DL Hematocrit 38.1 % Mean Corpuscular Volume 77.8 FL Mean Corpuscular Hemoglobin 24.8 PG Mean Corpuscular Hemoglobin Concent 31.8 % Red Cell Distribution Width 15.4 % Platelet Count 268 TH/MM3 Mean Platelet Volume 8.2 FL Neutrophils (%) (Auto) 64.8 % Lymphocytes (%) (Auto) 23.1 % Monocytes (%) (Auto) 7.5 % Eosinophils (%) (Auto) 3.8 % Basophils (%) (Auto) 0.8 % Neutrophils # (Auto) 4.9 TH/MM3 Lymphocytes # (Auto) 1.8 TH/MM3 Monocytes # (Auto) 0.6 TH/MM3 Eosinophils # (Auto) 0.3 TH/MM3 Basophils # (Auto) 0.1 TH/MM3 CBC Comment DIFF FINAL Differential Comment Prothrombin Time 12.0 SEC Prothromb Time International Ratio 1.1 RATIO Activated Partial Thromboplast Time 35.7 SEC Blood Urea Nitrogen 9 MG/DL Creatinine 0.69 MG/DL Random Glucose 102 MG/DL Total Protein 9.1 GM/DL Albumin 3.2 GM/DL Calcium Level 9.2 MG/DL Magnesium Level 2.2 MG/DL Alkaline Phosphatase 107 U/L Aspartate Amino Transf (AST/SGOT) 19 U/L Alanine Aminotransferase (ALT/SGPT) 30 U/L Total Bilirubin 0.4 MG/DL Sodium Level 139 MEQ/L Potassium Level 3.7 MEQ/L Chloride Level 103 MEQ/L Carbon Dioxide Level 28.3 MEQ/L Anion Gap 8 MEQ/L Estimat Glomerular Filtration Rate 125 ML/MIN Lactic Acid Level 1.4 mmol/L Human Chorionic Gonadotropin, Quant LESS THAN 1 MIU/ML MDM Medical Decision Making Medical Screen Exam Complete: Yes Emergency Medical Condition: Yes Interpretation(s) Last Impressions Lower Extremity Ultrasound 09/09/17 1333 Signed Impressions: Service Date/Time: August 13:53 - CONCLUSION: Normal examination. Javon Moctezuma Jr., MD Laboratory Tests Test 09/09/17 13:50 White Blood Count 7.6 TH/MM3 (4.0-11.0) Red Blood Count 4.89 MIL/MM3 (4.00-5.30) Hemoglobin 12.1 GM/DL (11.6-15.3) Hematocrit 38.1 % (35.0-46.0) Mean Corpuscular Volume 77.8 FL (80.0-100.0) Mean Corpuscular Hemoglobin 24.8 PG (27.0-34.0) Mean Corpuscular Hemoglobin Concent 31.8 % (32.0-36.0) Red Cell Distribution Width 15.4 % (11.6-17.2) Platelet Count 268 TH/MM3 (150-450) Mean Platelet Volume 8.2 FL (7.0-11.0) Neutrophils (%) (Auto) 64.8 % (16.0-70.0) Lymphocytes (%) (Auto) 23.1 % (9.0-44.0) Monocytes (%) (Auto) 7.5 % (0.0-8.0) Eosinophils (%) (Auto) 3.8 % (0.0-4.0) Basophils (%) (Auto) 0.8 % (0.0-2.0) Neutrophils # (Auto) 4.9 TH/MM3 (1.8-7.7) Lymphocytes # (Auto) 1.8 TH/MM3 (1.0-4.8) Monocytes # (Auto) 0.6 TH/MM3 (0-0.9) Eosinophils # (Auto) 0.3 TH/MM3 (0-0.4) Basophils # (Auto) 0.1 TH/MM3 (0-0.2) CBC Comment DIFF FINAL Differential Comment Prothrombin Time 12.0 SEC (9.8-11.6) Prothromb Time International Ratio 1.1 RATIO Activated Partial Thromboplast Time 35.7 SEC (24.3-30.1) Blood Urea Nitrogen 9 MG/DL (7-18) Creatinine 0.69 MG/DL (0.50-1.00) Random Glucose 102 MG/DL (74-106) Total Protein 9.1 GM/DL (6.4-8.2) Albumin 3.2 GM/DL (3.4-5.0) Calcium Level 9.2 MG/DL (8.5-10.1) Magnesium Level 2.2 MG/DL (1.5-2.5) Alkaline Phosphatase 107 U/L (45-117) Aspartate Amino Transf (AST/SGOT) 19 U/L (15-37) Alanine Aminotransferase (ALT/SGPT) 30 U/L (10-53) Total Bilirubin 0.4 MG/DL (0.2-1.0) Sodium Level 139 MEQ/L (136-145) Potassium Level 3.7 MEQ/L (3.5-5.1) Chloride Level 103 MEQ/L (98-107) Carbon Dioxide Level 28.3 MEQ/L (21.0-32.0) Anion Gap 8 MEQ/L (5-15) Estimat Glomerular Filtration Rate 125 ML/MIN (>89) Lactic Acid Level 1.4 mmol/L (0.4-2.0) Human Chorionic Gonadotropin, Quant LESS THAN 1 MIU/ML (0-5) Differential Diagnosis Cellulitis, failed outpatient therapy, DVT, abscess, folliculitis, gangrene, other Narrative Course Patient was seen and examined. Initial laboratory and radiological studies were ordered. IV was established and patient was placed on cardiac monitoring. Patient was given Zosyn and vancomycin. Discussed all findings and plan care of the patient was agreeable for admission. All questions were answered. Discussed patient with Dr. Parson, who is in agreement with plan of care and disposition. Discussed patient with hospitalist was agreeable to admit the patient. Patient remained stable throughout ED course. Physician Communication Physician Communication [id number] Wright, who is agreeable to admit the patient. Diagnosis Primary Impression: Cellulitis of right lower extremity Additional Impression: Failure of outpatient treatment Admitting Information Admitting Physician Requests: Observation Condition: Stable Joseph Amezquita Sep 09, 2017 13:39
[2017-09-09] MEDS ORDERED: SODIUM CHLOR 0.9% 1000 ML INJ 1,000 ML IV ONE (13:45)
[2017-09-09 13:49] VITALS: O2SAT 97
[2017-09-09 14:05] LABS: AUTOMATED NEUTROPHIL # 4.9 TH/MM3 (1.8-7.7); BASOPHIL # 0.1 TH/MM3 (0-0.2); BASOPHIL % 0.8 % (0.0-2.0); EOSINOPHIL # 0.3 TH/MM3 (0-0.4); EOSINOPHIL % 3.8 % (0.0-4.0); HEMATOCRIT 38.1 % (35.0-46.0); HEMO FLAGS DIFF FINAL; LYMPH % 23.1 % (9.0-44.0); LYMPHOCYTE # 1.8 TH/MM3 (1.0-4.8); MEAN CELL VOLUME 77.8 FL (80.0-100.0); MEAN CORPUSCULAR HEMOGLOBIN 24.8 PG (27.0-34.0); MEAN CORPUSCULAR HGB CONC 31.8 % (32.0-36.0); MONO % 7.5 % (0.0-8.0); NEUT % 64.8 % (16.0-70.0); PLATELET COUNT 268 TH/MM3 (150-450); RED BLOOD COUNT 4.89 MIL/MM3 (4.00-5.30); RED CELL DISTRIBUTION WIDTH 15.4 % (11.6-17.2); WHITE BLOOD COUNT 7.6 TH/MM3 (4.0-11.0)
[2017-09-09 14:12] LABS: APTT (PATIENT) 35.7 SEC (24.3-30.1); INTERNATIONAL NORMALIZED RATIO 1.1 RATIO
[2017-09-09 14:17] LABS: ALT (GPT) 30 U/L (10-53); ANION GAP 8 MEQ/L (5-15); AST (GOT) 19 U/L (15-37); BICARBONATE 28.3 MEQ/L (21.0-32.0); BLOOD UREA NITROGEN 9 MG/DL (7-18); CHLORIDE 103 MEQ/L (98-107); GLOMERULAR FILTRATION RATE 125 ML/MIN (>89); MAGNESIUM 2.2 MG/DL (1.5-2.5); POTASSIUM 3.7 MEQ/L (3.5-5.1); SODIUM (NA) 139 MEQ/L (136-145)
[2017-09-09 14:20] LABS: ALKALINE PHOSPHATASE 107 U/L (45-117); TOTAL BILIRUBIN ADULT 0.4 MG/DL (0.2-1.0)
--- NOTE | 2017-09-09 14:48 | RADRPT ---
EXAM DATE/TIME: 09/09/2017 13:53 [facility] COMPARISON: No previous studies available for comparison. INDICATIONS : Right leg pain. MEDICAL HISTORY : Gastroesophageal reflux disease. Right leg pain. SURGICAL HISTORY : Cholecystectomy. ENCOUNTER: Initial ACUITY: 1 month PAIN SCORE: 7/10 LOCATION: Right leg. TECHNIQUE: Venous ultrasound of the leg was performed from the inguinal ligament to the proximal calf. Real-lorrie e, color Doppler and spectral tracing, compression and augmentation techniques were used. FINDINGS: There is normal compressibility of the deep venous system from the inguinal region to the proximal ca lf. No echogenic clot is seen in the lumen of the common femoral, femoral, popliteal, and posterior tibial veins. There is a normal response of the venous system to proximal and distal augmentation an d respiration. CONCLUSION: Normal examination. Javon Moctezuma Jr., MD on September 09, 2017 at 14:45 Board Certified Radiologist. This report was verified electronically.
[2017-09-09] MEDS ORDERED: SODIUM CHLORIDE 0.9% FLUSH 10 ML FLUSH IV FLUSH PRN (15:15)
[2017-09-09] MEDS ORDERED: ONDANSETRON HCL 4 MG/2 ML VIAL IVP PRN (15:15)
[2017-09-09] MEDS ORDERED: MAGNESIUM HYDROXIDE SUSP 30 ML CUP PO PRN (15:15)
[2017-09-09] MEDS ORDERED: NALOXONE HCL 0.4 MG/ML AMP IV PUSH PRN (15:15)
[2017-09-09] MEDS ORDERED: ACETAMINOPHEN 325 MG TAB PO PRN (15:15)
[2017-09-09] MEDS ORDERED: RESP: ALBUTEROL 2.5 MG/IPRATROPIUM 0.5 MG NEB (PRN) NEB (15:30)
[2017-09-09 15:37] LABS: BETA HCG QUANT LESS THAN 1 MIU/ML (0-5)
--- NOTE | 2017-09-09 15:47 | HHI.HP ---
HPI Service [facility] Hospitalists Primary Care Physician Rosa Freedman MD Admission Diagnosis right lower extremity cellulitis, failed outpatient therapy Chief Complaint: RLE worsening cellulitis Travel History International Travel<30 Days: No Contact w/Intl Traveler <30 Da: No Traveled to Known Affected Are: No History of Present Illness This is a morbidly obese 26 year old female patient with a past medical history which includes asthma and GERD. Patient reports that about 1 month ago she sprained bilateral ankles, both ankles became edematous. Patient denies specific trauma or open skin. Then about 1 week ago patient noticed erythema in right ankle area. Patient then treated by her PCP outpatient for cellulitis of the right LE with Doxycycline x 1 week. Patient was seen by PCP today in follow up. The patient and PCP felt as if the area of erythema is worsening despite abx. Patient then referred to ER for further evaluation and treatment. Patient complaining of achy pain throughout her right leg. The pain starts her ankle moves proximally. Pain is worse with palpation. Patient denies fevers, chills, chest pain, shortness of breath, cough, abdominal pain or diarrhea. Review of Systems Constitutional: DENIES: Fatigue, Fever Eyes: DENIES: Blurred vision, Diplopia, Vision loss Respiratory: DENIES: Cough, Sputum production, Shortness of breath Cardiovascular: DENIES: Chest pain, Palpitations, Dyspnea on Exertion Gastrointestinal: DENIES: Abdominal pain, Constipation, Diarrhea Musculoskeletal: COMPLAINS OF: Joint pain, Joint Swelling Integumentary: COMPLAINS OF: Abnormal pigmentation Neurologic: DENIES: Abnormal gait, Headache, Localized weakness, Speech Problems Psychiatric: DENIES: Anxiety, Confusion, Depression Past Family Social History Past Medical History morbid obesity, asthma and GERD Past Surgical History cholecystomy ERCP endoscopic sphincterotomy Reported Medications Ventolin Hfa 18 GM Inh (Albuterol Sulfate) 90 Mcg/Act Aer 2 Puff INH Q4-6H PRN Ranitidine (Ranitidine HCl) 150 Mg Tab 150 Mg PO BID Potassium Chloride ER (Potassium Chloride) 10 Meq Cap 10 Meq PO DAILY Furosemide 20 Mg Tab 20 Mg PO DAILY Doxycycline Hyclate 100 Mg Cap 100 Mg PO BID Albuterol Neb (Albuterol Sulfate) 2.5 Mg/0.5 Ml Neb 2.5 Mg NEB Q4HR NEB PRN Note: The Albuterol Sulfate Inhalation Solution is concentrated and must be diluted. Read complete instructions carefully before using. Allergies: Coded Allergies: No Known Allergies (Verified , 09/09/17) Active Ordered Medications Current Medications Medications (Trade) Dose Ordered Sig/Zeke Route Start Time Stop Time Status Last Admin (NS Flush) 2 ml UNSCH PRN IV FLUSH 09/09/17 15:15 (NS Flush) 2 ml BID IV FLUSH 09/09/17 21:00 (Tylenol) 650 mg Q4H PRN PO 09/09/17 15:15 (Zofran Inj) 4 mg Q6H PRN IVP 09/09/17 15:15 (Restoril) 15 mg HS PRN PO 09/09/17 21:00 (Lovenox Inj) 30 mg Q24H SQ 09/09/17 16:00 (Narcan Inj) 0.4 mg UNSCH PRN IV PUSH 09/09/17 15:15 (Milk Of Magnesia Liq) 30 ml Q12H PRN PO 09/09/17 15:15 Vancomycin HCl 1000 mg/Sodium Chloride 250 ml @ 250 mls/hr Q12H IV 09/10/17 02:00 (Protonix) 40 mg DAILY PO 09/09/17 15:30 (Duoneb Neb) 1 ampule Q6HR NEB PRN NEB 09/09/17 15:30 Family History reviewed and noncontributory Social History denies ETOH use, tobacco use or illicit drug use Physical Exam Vital Signs Vital Signs Date Time Temp Pulse Resp B/P (MAP) Pulse Ox O2 Delivery O2 Flow Rate FiO2 09/09/17 13:49 97 Room Air 09/09/17 13:49 97 Room Air 09/09/17 13:05 98.6 118 20 139/97 (111) 98 Physical Exam GENERAL: This is a morbidly obese female patient, in no apparent distress. SKIN: Erythematous, indurated, tender right medial distal thigh. There is no crepitus or fluctuation noted. Right distal majano/ankle is warm to palpation. There is no crepitus or induration. HEAD: Atraumatic. Normocephalic. No temporal or scalp tenderness. EYES: Extraocular motions intact. No scleral icterus. No injection or drainage. ENT: Nose without bleeding, purulent drainage or septal hematoma. Throat without erythema, tonsillar hypertrophy or exudate. Uvula midline. Airway patent. NECK: Trachea midline. No JVD or lymphadenopathy. Supple, nontender, no meningeal signs. CARDIOVASCULAR: difficult to auscultate due to body habitus. Regular rate and rhythm RESPIRATORY: difficult to auscultate due to body habitus. Clear to auscultation. Breath sounds equal bilaterally. GASTROINTESTINAL: Abdomen soft, non-tender, nondistended. MUSCULOSKELETAL: Extremities without clubbing, cyanosis, or edema. No joint tenderness, effusion, or edema noted. No calf tenderness. Negative Homans sign bilaterally. NEUROLOGICAL: Awake and alert. No focal deficits appreciated. Motor and sensory grossly within normal limits. Five out of 5 muscle strength in all muscle groups. Normal speech. Laboratory Laboratory Tests Test 09/09/17 13:50 White Blood Count 7.6 Red Blood Count 4.89 Hemoglobin 12.1 Hematocrit 38.1 Mean Corpuscular Volume 77.8 Mean Corpuscular Hemoglobin 24.8 Mean Corpuscular Hemoglobin Concent 31.8 Red Cell Distribution Width 15.4 Platelet Count 268 Mean Platelet Volume 8.2 Neutrophils (%) (Auto) 64.8 Lymphocytes (%) (Auto) 23.1 Monocytes (%) (Auto) 7.5 Eosinophils (%) (Auto) 3.8 Basophils (%) (Auto) 0.8 Neutrophils # (Auto) 4.9 Lymphocytes # (Auto) 1.8 Monocytes # (Auto) 0.6 Eosinophils # (Auto) 0.3 Basophils # (Auto) 0.1 CBC Comment DIFF FINAL Differential Comment Prothrombin Time 12.0 Prothromb Time International Ratio 1.1 Activated Partial Thromboplast Time 35.7 Blood Urea Nitrogen 9 Creatinine 0.69 Random Glucose 102 Total Protein 9.1 Albumin 3.2 Calcium Level 9.2 Magnesium Level 2.2 Alkaline Phosphatase 107 Aspartate Amino Transf (AST/SGOT) 19 Alanine Aminotransferase (ALT/SGPT) 30 Total Bilirubin 0.4 Sodium Level 139 Potassium Level 3.7 Chloride Level 103 Carbon Dioxide Level 28.3 Anion Gap 8 Estimat Glomerular Filtration Rate 125 Lactic Acid Level 1.4 Human Chorionic Gonadotropin, Quant LESS THAN 1 Date/Time Source Procedure Growth Status 09/09/17 13:45 Blood Peripheral Aerobic Blood Culture Pending Received 09/09/17 13:45 Blood Peripheral Anaerobic Blood Culture Pending Received Result Diagram: 09/09/17 1350 09/09/17 1350 Imaging Last Impressions Lower Extremity Ultrasound 09/09/17 0373 Signed Impressions: Service Date/Time: August 13:53 - CONCLUSION: Normal examination. MD Bee Cassidy Jr. VTE Risk Assessment Capchristel VTE Risk Assessment: Mod/High Risk (score >= 2) Caprini Risk Assessment Model Point Value = 1 Point Value = 2 Point Value = 3 Point Value = 5 Age 41-60 Minor surgery BMI > 25 kg/m2 Swollen legs Varicose veins or History of unexplained or recurrent spontaneous Oral contraceptives or hormone replacement Sepsis (< 1 month) Serious lung disease, including pneumonia (< 1 month) Abnormal pulmonary function Acute myocardial infarction Congestive heart failure (< 1 month) History of inflammatory bowel disease Medical patient at bed rest Age 61-74 Arthroscopic surgery Major open surgery (> 45 min) Laparoscopic surgery (> 45 min) Malignancy Confined to bed (> 72 hours) Immobilizing plaster cast Central venous access Age >= 75 History of VTE Family history of VTE Factor V Leiden Prothrombin [id number] Lupus anticoagulant Anticardiolipin antibodies Elevated serum homocysteine Heparin-induced thrombocytopenia Other congenital or acquired thrombophilia Stroke (< 1 month) Elective arthroplasty Hip, pelvis, or leg fracture Acute spinal cord injury (< 1 month) Prophylaxis Regimen Total Risk Factor Score Risk Level Prophylaxis Regimen 0-1 Low Early ambulation 2 Moderate Order ONE of the following: *Sequential Compression Device (SCD) *Heparin 5000 units SQ BID 3-4 Higher Order ONE of the following medications: *Heparin 5000 units SQ TID *Enoxaparin/Lovenox 40 mg SQ daily (WT < 150 kg, CrCl > 30 mL/min) *Enoxaparin/Lovenox 30 mg SQ daily (WT < 150 kg, CrCl > 10-29 mL/min) *Enoxaparin/Lovenox 30 mg SQ BID (WT < 150 kg, CrCl > 30 mL/min) AND/OR *Sequential Compression Device (SCD) 5 or more Highest Order ONE of the following medications: *Heparin 5000 units SQ TID (Preferred with Epidurals) *Enoxaparin/Lovenox 40 mg SQ daily (WT < 150 kg, CrCl > 30 mL/min) *Enoxaparin/Lovenox 30 mg SQ daily (WT < 150 kg, CrCl > 10-29 mL/min) *Enoxaparin/Lovenox 30 mg SQ BID (WT < 150 kg, CrCl > 30 mL/min) AND *Sequential Compression Device (SCD) Assessment and Plan Problem List: (1) Cellulitis of right lower extremity ICD Codes: L03.115 - Cellulitis of right lower limb Status: Acute Plan: Cellulitis right lower extremity failed outpatient doxycycline started on Vancomycin and Zosyn in ER will continue with pharmacy consult Consult ID recheck CBC and BMP in AM Asthma- not in acute exacerbation duonebs if needed GERD Protonix Morbid obesity patient to follow up with PCP after DC DVT prophylaxis with Lovenox (2) Failure of outpatient treatment ICD Codes: Z78.9 - Other specified health status Status: Acute (3) Asthma ICD Codes: J45.909 - Unspecified asthma, uncomplicated Status: Chronic (4) GERD (gastroesophageal reflux disease) ICD Codes: K21.9 - Gastro-esophageal reflux disease without esophagitis Status: Chronic (5) Morbid obesity with BMI of 70 and over, adult ICD Codes: E66.01 - Morbid (severe) obesity due to excess calories; Z68.45 - Body mass index (BMI) 70 or greater, adult Assessment and Plan Patient examined. Assessment and plan formulated with Lucero Mansfield PA-C. I agree with the above. Problem Qualifiers (1) GERD (gastroesophageal reflux disease): Qualified Codes: K21.9 - Gastro-esophageal reflux disease without esophagitis Lucero Mansfield Sep 09, 2017 15:47 Jae Wright DO Sep 13, 2017 00:27
[2017-09-09] MEDS: PANTOPRAZOLE SOD 40 MG DELAYED RELEASE TAB PO SCH (16:17)
[2017-09-09] MEDS: ENOXAPARIN SODIUM 30 MG/0.3 ML SYRINGE SQ SCH (16:18)
[2017-09-09 16:56] VITALS: BP 142/90; PULSE 102; RESP 24; TEMP 97.3; O2SAT 99
--- NOTE | 2017-09-09 17:04 | RADRPT ---
EXAM DATE/TIME: 09/09/2017 15:20 [place] COMPARISON: CHEST SINGLE AP, June 17, 2017, 1:06. INDICATIONS : Cough MEDICAL HISTORY : Cardiovascular disease. Gastroesophageal reflux disease SURGICAL HISTORY : Cholecystectomy. ENCOUNTER: Initial ACUITY: 1 month PAIN SCORE: 0/10 LOCATION: chest FINDINGS: 2 portable frontal views of the chest are limited by the patient's body habitus. The heart is mildly enlarged. The lungs are clear. No gross infiltrate or effusion. Elevation of the right hemidiaphragm. Bony structures are unremarkable. CONCLUSION: Cardiomegaly. Clear lungs. Javon Moctezuma Jr., MD on September 09, 2017 at 16:46 Board Certified Radiologist. This report was verified electronically.
[2017-09-09 17:17] LABS: HEMOGLOBIN A1a 1.2 %; HEMOGLOBIN A1b 1.1 %; HEMOGLOBIN Ao 82.9 %; HEMOGLOBIN F 1.7 %; HEMOGLOBIN LA1C 2.1 %
[2017-09-09 20:46] VITALS: BP 172/89; PULSE 102; RESP 20; TEMP 98.3; O2SAT 100
[2017-09-09] MEDS ORDERED: TEMAZEPAM 15 MG CAP PO PRN (21:00)
[2017-09-09] MEDS: traMADol HCL 50 MG TAB PO PRN (21:09)
[2017-09-09] MEDS: SODIUM CHLORIDE 0.9% FLUSH 10 ML FLUSH IV FLUSH SCH (21:10)
[2017-09-09] MEDS: PIPERACIL-TAZO 4.5 GM PREMIX 100 ML IV SCH (21:10)
[2017-09-09 22:04] VITALS: BP 138/69; PULSE 107; RESP 18; TEMP 99.9; O2SAT 100
[2017-09-09 22:56] VITALS: TEMP 99.9
[2017-09-10] VITALS (7 sets, daily range): BP systolic 116–127; BP diastolic 58–80; PULSE 92–117; RESP 18–22; TEMP 96.8–98.5; O2SAT 93–98
[2017-09-10] MEDS: VANCOMYCIN INJ 1,000 MG in SODIUM CHLOR 0.9% 250 ML INJ 250 ML IV SCH ×2 (02:29→13:53)
[2017-09-10] MEDS ORDERED: methylPREDNISolone SOD SUCC 40 MG/1 ML VIAL IV PUSH SCH (04:45)
[2017-09-10 05:41] LABS: CREATINE KINASE 63 U/L (26-192)
[2017-09-10] MEDS ORDERED: MORPHINE SULFATE 4 MG/ML INJ IV SCH (05:45)
[2017-09-10] MEDS: PIPERACIL-TAZO 4.5 GM PREMIX 100 ML IV SCH ×3 (06:18→15:54)
[2017-09-10] MEDS: PANTOPRAZOLE SOD 40 MG DELAYED RELEASE TAB PO SCH (09:29)
[2017-09-10] MEDS: SODIUM CHLORIDE 0.9% FLUSH 10 ML FLUSH IV FLUSH SCH ×2 (09:29→22:11)
[2017-09-10 12:56] LABS: AUTOMATED NEUTROPHIL # 8.7 TH/MM3 (1.8-7.7); BASOPHIL % 0.3 % (0.0-2.0); HEMO FLAGS DIFF FINAL; LYMPH % 9.2 % (9.0-44.0); LYMPHOCYTE # 0.9 TH/MM3 (1.0-4.8); MEAN CELL VOLUME 78.3 FL (80.0-100.0); MEAN CORPUSCULAR HEMOGLOBIN 25.4 PG (27.0-34.0); MEAN CORPUSCULAR HGB CONC 32.4 % (32.0-36.0); MONO % 1.3 % (0.0-8.0); NEUT % 89.2 % (16.0-70.0); PLATELET COUNT 250 TH/MM3 (150-450); RED CELL DISTRIBUTION WIDTH 15.3 % (11.6-17.2); WHITE BLOOD COUNT 9.7 TH/MM3 (4.0-11.0)
[2017-09-10 13:10] LABS: BICARBONATE 26.2 MEQ/L (21.0-32.0); POTASSIUM 3.8 MEQ/L (3.5-5.1)
--- NOTE | 2017-09-10 13:16 | HHI.PR ---
Subjective Remarks Pt had episode of chest pain and SOB overnight. Episode was self limiting. Pt denies chest pain, palpitations, or SOB today. Pt feels pain and edema at RLE are improving today. Objective Vitals Vital Signs Date Time Temp Pulse Resp B/P (MAP) Pulse Ox O2 Delivery O2 Flow Rate FiO2 09/10/17 11:59 97.6 92 22 127/72 (90) 97 09/10/17 08:14 97.8 98 20 126/64 (84) 93 09/10/17 06:20 95 95 09/10/17 03:59 98.4 113 22 116/58 (77) 96 09/10/17 00:01 98.5 117 20 127/80 (96) 95 09/09/17 22:56 99.9 09/09/17 22:04 99.9 107 18 138/69 (92) 100 09/09/17 20:46 98.3 102 20 172/89 (116) 100 09/09/17 16:56 97.3 102 24 142/90 (107) 99 09/09/17 13:49 97 Room Air 09/09/17 13:49 97 Room Air 09/10/17 09/10/17 09/11/17 15:00 23:00 07:00 # Voids 6 Result Diagram: 09/10/17 1230 09/09/17 1350 Imaging Last Impressions Lower Extremity Ultrasound 09/09/17 1333 Signed Impressions: Service Date/Time: August 13:53 - CONCLUSION: Normal examination. Javon Moctezuma Jr., MD Objective Remarks GENERAL: This is a well-nourished, well-developed patient, in no apparent distress. CARDIOVASCULAR: Regular rate and rhythm without murmurs, gallops, or rubs. RESPIRATORY: Clear to auscultation. Breath sounds equal bilaterally. No wheezes , rales, or rhonchi. GASTROINTESTINAL: Abdomen soft, non-tender, nondistended. Normal active bowel sounds MUSCULOSKELETAL: erythema and some degree of edema at RLE, difficult to quantify d/t pt's obesity. NEURO: Alert & Oriented x4 to person, place, time, situation. Moves all ext x4 A/P Problem List: (1) Cellulitis of right lower extremity ICD Codes: L03.115 - Cellulitis of right lower limb Status: Acute Plan: Cellulitis right lower extremity - failed outpatient doxycycline - NO leukocytosis - Tmax 99.9 (09/09) at 11PM - Vancomycin (09/09 - present) - zosyn (09/09 - present) - await ID consult - DVT prophylaxis with lovenox Asthma- not in acute exacerbation duonebs if needed GERD Protonix Morbid obesity patient to follow up with PCP after DC DVT prophylaxis with Lovenox (2) Failure of outpatient treatment ICD Codes: Z78.9 - Other specified health status Status: Acute Plan: - see above (3) Chest pain, atypical ICD Codes: R07.89 - Other chest pain Plan: - pt had episode of self limiting atypical chest pain - troponin NOT elevated - elevated D-dimer likely d/t infection - PE unlikely. Vitals stable, no tachycardia or hypoxia. - No c/o SOB. (4) Asthma ICD Codes: J45.909 - Unspecified asthma, uncomplicated Status: Chronic Plan: - duonebs prn (5) GERD (gastroesophageal reflux disease) ICD Codes: K21.9 - Gastro-esophageal reflux disease without esophagitis Status: Chronic Plan: - PPI (6) Morbid obesity with BMI of 70 and over, adult ICD Codes: E66.01 - Morbid (severe) obesity due to excess calories; Z68.45 - Body mass index (BMI) 70 or greater, adult Problem Qualifiers (1) GERD (gastroesophageal reflux disease): Qualified Codes: K21.9 - Gastro-esophageal reflux disease without esophagitis Jae Wright DO Sep 10, 2017 13:16
[2017-09-10] MEDS: ENOXAPARIN SODIUM 30 MG/0.3 ML SYRINGE SQ SCH (15:54)
--- NOTE | 2017-09-10 19:26 | EKG ---
Date Performed: 09/10/2017 Time Performed: 04:50:08 PTAGE: 26 years EKG: SINUS TACHYCARDIA ABNORMAL RHYTHM ECG PREVIOUS TRACING : 06/17/2017 00.47 Compared to prior tracing no significant change DOCTOR: Vincent Romeo Interpretating Date/Time 09/10/2017 19:24:38
--- NOTE | 2017-09-10 20:05 | PD.ID.CON ---
History of Present Illness Service ID Consult Requested By Reason for Consult Evaluation and Mment of RLE cellulitis. Primary Care Physician Rosa Freedman MD Diagnoses: History of Present Illness is a 26-year-old morbidly obese female with past medical history significant for asthma and GERD. Patient reports that about 1 month ago she sprained bilateral ankles and both of become edematous since. Patient denies any trauma leading to lacerations or abrasions. Patient started noticing erythema in the right ankle area. Patient's primary care physician's treated are as outpatient with doxycycline for one week. Patient was seen and followed by her primary care physician who felt that there was worsening of the erythema despite oral antibiotics and therefore referred the patient to the emergency room for further evaluation and treatment Patient denies fevers, chills, chest pain, shortness of breath, cough, abdominal pain or diarrhea. Denies any local trauma. Infectious disease is consulted for evaluation and management of right lower extremity not morbidly obese patient with challenge to dose vancomycin. Review of Systems ROS Limitations: Poor Historian Constitutional: DENIES: Diaphoretic episodes, Fatigue, Fever, Weight gain, Weight loss, Chills, Dizziness, Change in appetite, Night Sweats Endocrine: DENIES: Abnorml menstrual pattern, Heat/cold intolerance, Polydipsia , Polyuria, Polyphagia Eyes: DENIES: Blurred vision, Diplopia, Eye inflammation, Eye pain, Vision loss , Photosensitivity, Double Vision Ears, nose, mouth, throat: DENIES: Tinnitus, Hearing loss, Vertigo, Nasal discharge, Oral lesions, Throat pain, Hoarseness, Ear Pain, Running Nose, Epistaxis, Sinus Pain, Toothache, Odynophagia Cardiovascular: DENIES: Chest pain, Palpitations, Syncope, Dyspnea on Exertion , PND, Lower Extremity Edema, Orthopnea, Claudication Gastrointestinal: DENIES: Abdominal pain, Black stools, Bloody stools, Constipation, Diarrhea, Nausea, Vomiting, Difficulty Swallowing, Anorexia Genitourinary: DENIES: Abnormal vaginal bleeding, Dysmenorrhea, Dyspareunia, Sexual dysfunction, Urinary frequency, Urinary incontinence, Urgency, Hematuria , Dysuria, Nocturia, Vaginal discharge Musculoskeletal: DENIES: Joint pain, Muscle aches, Stiffness, Joint Swelling, Back pain, Neck pain Integumentary: DENIES: Abnormal pigmentation, Pruritus, Rash, Nail changes, Breast masses, Breast skin changes, Nipple discharge Hematologic/lymphatic: DENIES: Bruising, Lymphadenopathy Immunologic/allergic: DENIES: Eczema, Urticaria Neurologic: DENIES: Abnormal gait, Headache, Localized weakness, Paresthesias, Seizures, Speech Problems, Tremor, Poor Balance Psychiatric: DENIES: Anxiety, Confusion, Mood changes, Depression, Hallucinations, Agitation, Suicidal Ideation, Homicidal Ideation, Delusions Except as stated in HPI: all other systems reviewed are Neg Past Family Social History Allergies: Coded Allergies: No Known Allergies (Verified , 09/09/17) Past Medical History morbid obesity BMI 75.6 asthma GERD Past Surgical History cholecystomy ERCP endoscopic sphincterotomy Reported Medications I attest I have reviewed, obtained her updated patient's home medications. Reported Meds & Active Scripts Active Reported Ventolin Hfa 18 GM Inh (Albuterol Sulfate) 90 Mcg/Act Aer 2 Puff INH Q4-6H PRN Ranitidine (Ranitidine HCl) 150 Mg Tab 150 Mg PO BID Potassium Chloride ER (Potassium Chloride) 10 Meq Cap 10 Meq PO DAILY Furosemide 20 Mg Tab 20 Mg PO DAILY Doxycycline Hyclate 100 Mg Cap 100 Mg PO BID Albuterol Neb (Albuterol Sulfate) 2.5 Mg/0.5 Ml Neb 2.5 Mg NEB Q4HR NEB PRN Note: The Albuterol Sulfate Inhalation Solution is concentrated and must be diluted. Read complete instructions carefully before using. Active Ordered Medications Current Medications Medications (Trade) Dose Ordered Sig/Zeke Route Start Time Stop Time Status Last Admin (NS Flush) 2 ml UNSCH PRN IV FLUSH 09/09/17 15:15 (NS Flush) 2 ml BID IV FLUSH 09/09/17 21:00 09/10/17 09:29 (Tylenol) 650 mg Q4H PRN PO 09/09/17 15:15 (Zofran Inj) 4 mg Q6H PRN IVP 09/09/17 15:15 09/09/17 22:17 (Restoril) 15 mg HS PRN PO 09/09/17 21:00 (Lovenox Inj) 30 mg Q24H SQ 09/09/17 16:00 09/10/17 15:54 (Narcan Inj) 0.4 mg UNSCH PRN IV PUSH 09/09/17 15:15 (Milk Of Magnesia Liq) 30 ml Q12H PRN PO 09/09/17 15:15 Vancomycin HCl 1000 mg/Sodium Chloride 250 ml @ 250 mls/hr Q12H IV 09/10/17 02:00 09/10/17 13:53 (Protonix) 40 mg DAILY PO 09/09/17 15:30 09/10/17 09:29 (Duoneb Neb) 1 ampule Q6HR NEB PRN NEB 09/09/17 15:30 Piperacillin Sod/ Tazobactam Sod 100 ml @ 200 mls/hr Q6H IV 09/09/17 22:00 09/10/17 15:54 (Ultram) 50 mg Q8H PRN PO 09/09/17 20:30 09/09/17 21:09 Family History Reviewed and noncontributory to current illness. Social History Denies any alcohol, smoking or illicit drugs. Patient works in the [employer] department at the [employer]. Physical Exam Vital Signs Vital Signs Date Time Temp Pulse Resp B/P (MAP) Pulse Ox O2 Delivery O2 Flow Rate FiO2 09/10/17 11:59 97.6 92 22 127/72 (90) 97 09/10/17 08:14 97.8 98 20 126/64 (84) 93 09/10/17 06:20 95 95 09/10/17 03:59 98.4 113 22 116/58 (77) 96 09/10/17 00:01 98.5 117 20 127/80 (96) 95 09/09/17 22:56 99.9 09/09/17 22:04 99.9 107 18 138/69 (92) 100 09/09/17 20:46 98.3 102 20 172/89 (116) 100 Physical Exam GENERAL: Morbidly obese patient, in no apparent distress. SKIN: No rashes, ecchymoses or lesions. Cool and dry. HEAD: Atraumatic. Normocephalic. No temporal or scalp tenderness. EYES: Pupils equal round and reactive. Extraocular motions intact. No scleral icterus. No injection or drainage. ENT: Nose without bleeding, purulent drainage or septal hematoma. Throat without erythema, tonsillar hypertrophy or exudate. Uvula midline. Airway patent. NECK: Trachea midline. Large neck. Supple, nontender, no meningeal signs. CARDIOVASCULAR: Regular rate and rhythm without murmurs. RESPIRATORY: Clear to auscultation. Breath sounds equal bilaterally. No wheezes , rales, or rhonchi. GASTROINTESTINAL: Abdomen soft, non-tender, nondistended. MUSCULOSKELETAL: Right lower extremity with several skin folds/pannus. On lifting the cerebral folds there is foul-smelling moistness noted. There appeared to be erythema and no soles as well. In addition to this there was an area on the inner aspect of the right thigh as well as inner aspect of her calf that had significant induration as well as erythema. Warmth was noted in both those areas as well. No fluctuance noted to suggest abscess. NEUROLOGICAL: Awake and alert. Cranial nerves II through XII intact. Motor and sensory grossly within normal limits. Five out of 5 muscle strength in all muscle groups. Normal speech. Psych cooperative IV line sites with no evidence of infection. Laboratory Laboratory Tests Test 09/10/17 05:00 09/10/17 12:30 D-Dimer Quantitative (PE/DVT) 2.23 Total Creatine Kinase 63 Troponin I LESS THAN 0.02 White Blood Count 9.7 Red Blood Count 4.60 Hemoglobin 11.7 Hematocrit 36.0 Mean Corpuscular Volume 78.3 Mean Corpuscular Hemoglobin 25.4 Mean Corpuscular Hemoglobin Concent 32.4 Red Cell Distribution Width 15.3 Platelet Count 250 Mean Platelet Volume 8.5 Neutrophils (%) (Auto) 89.2 Lymphocytes (%) (Auto) 9.2 Monocytes (%) (Auto) 1.3 Eosinophils (%) (Auto) 0.0 Basophils (%) (Auto) 0.3 Neutrophils # (Auto) 8.7 Lymphocytes # (Auto) 0.9 Monocytes # (Auto) 0.1 Eosinophils # (Auto) 0.0 Basophils # (Auto) 0.0 CBC Comment DIFF FINAL Differential Comment Blood Urea Nitrogen 9 Creatinine 0.83 Random Glucose 172 Calcium Level 8.7 Sodium Level 138 Potassium Level 3.8 Chloride Level 104 Carbon Dioxide Level 26.2 Anion Gap 8 Estimat Glomerular Filtration Rate 101 Date/Time Source Procedure Growth Status 09/09/17 13:45 Blood Peripheral Aerobic Blood Culture - Preliminary NO GROWTH IN 1 DAY Resulted 09/09/17 13:45 Blood Peripheral Anaerobic Blood Culture - Preliminary NO GROWTH IN 1 DAY Resulted Result Diagram: 09/10/17 1230 09/10/17 1230 Imaging Last Impressions Chest X-Ray 09/09/17 1512 Signed Impressions: Service Date/Time: August 15:20 - CONCLUSION: Cardiomegaly. Clear lungs. Javon Moctezuma Jr., MD Lower Extremity Ultrasound 09/09/17 1333 Signed Impressions: Service Date/Time: August 13:53 - CONCLUSION: Normal examination. Javon Moctezuma Jr., MD Assessment and Plan Assessment and Plan Right lower extremity cellulitis Possible intertrigo in the right lower extremity fold/pannus Morbid obesity Recommendations Discontinue vancomycin Discontinue Zosyn Start Levaquin oral Start Doxy oral Start Diflucan oral Start nystatin for local application Counseled patient to keep the skin folds dry and clean at all times to prevent recurrent infections. Discussed with Dr. Wright if patient tolerates this oral regimen okay to discharge on about regimen for total of additional [address] Dominguez covering for me this weekend and available when necessary. Kate Matos MD Sep 10, 2017 20:05
[2017-09-10] MEDS: FLUCONAZOLE 100 MG TAB PO SCH (22:11)
[2017-09-10] MEDS: DOXYCYCLINE HYCLATE 100 MG CAP PO SCH (22:11)
[2017-09-10] MEDS: NYSTATIN 100,000 UNIT/GM CREAM 15 GM TOPICAL SCH (22:11)
[2017-09-10] MEDS: LEVOFLOXACIN 500 MG TAB PO SCH (22:11)
[2017-09-11 00:26] VITALS: BP 116/88; PULSE 79; RESP 18; TEMP 96.9; O2SAT 100
[2017-09-11] MEDS: VANCOMYCIN INJ 1,000 MG in SODIUM CHLOR 0.9% 250 ML INJ 250 ML IV SCH (02:54)
[2017-09-11 08:00] VITALS: BP 134/72; PULSE 80; RESP 19; TEMP 96.8; O2SAT 99
[2017-09-11] MEDS ORDERED: NYST15T TOPICAL ×2 (09:53→12:34)
[2017-09-11] MEDS ORDERED: LEVA500T20 PO (09:53)
[2017-09-11] MEDS ORDERED: DOXY100C PO (09:53)
[2017-09-11] MEDS ORDERED: DIFL100T PO (09:53)
--- NOTE | 2017-09-11 09:55 | HHI.DCPOC ---
Discharge Care Plan Diagnosis: (1) Cellulitis of right lower extremity (2) Failure of outpatient treatment (3) Morbid obesity with BMI of 70 and over, adult Goals to Promote Your Health * To prevent worsening of your condition and complications * To maintain your health at the optimal level Directions to Meet Your Goals Take your medications as prescribed Follow your dietary instruction Follow activity as directed Keep your appointments as scheduled Take your immunizations and boosters as scheduled If your symptoms worsen call your PCP, if no PCP go to Urgent Care Center or Emergency Room Smoking is Dangerous to Your Health. Avoid second hand smoke Call the 24-hour hour crisis hotline for domestic abuse at [facility] Mansfield Sep 11, 2017 09:55 Jae Wright DO Sep 13, 2017 00:28
--- NOTE | 2017-09-11 10:03 | HHI.DS ---
Discharge Summary Admission Date Sep 10, 2017 at 13:17 Discharge Date: Sep 11, 2017 Admitting Diagnosis right lower extremity cellulitis, failed outpatient therapy (1) Cellulitis of right lower extremity ICD Codes: L03.115 - Cellulitis of right lower limb Status: Acute (2) Failure of outpatient treatment ICD Codes: Z78.9 - Other specified health status Status: Acute (3) Chest pain, atypical ICD Codes: R07.89 - Other chest pain (4) Asthma ICD Codes: J45.909 - Unspecified asthma, uncomplicated Status: Chronic (5) GERD (gastroesophageal reflux disease) ICD Codes: K21.9 - Gastro-esophageal reflux disease without esophagitis Status: Chronic (6) Morbid obesity with BMI of 70 and over, adult ICD Codes: E66.01 - Morbid (severe) obesity due to excess calories; Z68.45 - Body mass index (BMI) 70 or greater, adult Consultants Dr. Arvizu Procedures none Brief History This is a morbidly obese 26 year old female patient with a past medical history which includes asthma and GERD. Patient reports that about 1 month ago she sprained bilateral ankles, both ankles became edematous. Patient denies specific trauma or open skin. Then about 1 week ago patient noticed erythema in right ankle area. Patient then treated by her PCP outpatient for cellulitis of the right LE with Doxycycline x 1 week. Patient was seen by PCP today in follow up. The patient and PCP felt as if the area of erythema is worsening despite abx. Patient then referred to ER for further evaluation and treatment. Patient complaining of achy pain throughout her right leg. The pain starts her ankle moves proximally. Pain is worse with palpation. Patient denies fevers, chills, chest pain, shortness of breath, cough, abdominal pain or diarrhea. CBC/BMP: 09/10/17 1230 09/10/17 1230 Significant Findings Laboratory Tests Test 09/09/17 13:50 09/10/17 05:00 09/10/17 12:30 Mean Corpuscular Volume 77.8 FL (80.0-100.0) 78.3 FL (80.0-100.0) Mean Corpuscular Hemoglobin 24.8 PG (27.0-34.0) 25.4 PG (27.0-34.0) Mean Corpuscular Hemoglobin Concent 31.8 % (32.0-36.0) Prothrombin Time 12.0 SEC (9.8-11.6) Activated Partial Thromboplast Time 35.7 SEC (24.3-30.1) Total Protein 9.1 GM/DL (6.4-8.2) Albumin 3.2 GM/DL (3.4-5.0) Hemoglobin A1c 6.5 % (4.3-6.0) D-Dimer Quantitative (PE/DVT) 2.23 MG/L FEU (0.00-0.50) Troponin I LESS THAN 0.02 NG/ML Neutrophils (%) (Auto) 89.2 % (16.0-70.0) Neutrophils # (Auto) 8.7 TH/MM3 (1.8-7.7) Lymphocytes # (Auto) 0.9 TH/MM3 (1.0-4.8) Random Glucose 172 MG/DL (74-106) Imaging Last Impressions Chest X-Ray 09/09/17 1512 Signed Impressions: Service Date/Time: August 15:20 - CONCLUSION: Cardiomegaly. Clear lungs. Javon Moctezuma Jr., MD Lower Extremity Ultrasound 09/09/17 1333 Signed Impressions: Service Date/Time: August 13:53 - CONCLUSION: Normal examination. Javon Moctezuma Jr., MD PE at Discharge GENERAL: This is a well-nourished, well-developed patient, in no apparent distress. SKIN: Erythematous, indurated, tender right medial distal thigh. Right distal majano/ankle is warm to palpation. Improving CARDIOVASCULAR: Regular rate and rhythm without murmurs, gallops, or rubs. RESPIRATORY: Clear to auscultation. Breath sounds equal bilaterally. No wheezes , rales, or rhonchi. GASTROINTESTINAL: Abdomen soft, non-tender, nondistended. Normal active bowel sounds MUSCULOSKELETAL: erythema and some degree of edema at RLE, difficult to quantify d/t pt's obesity. NEURO: Alert & Oriented x4 to person, place, time, situation. Moves all ext x4 Hospital Course Cellulitis right lower extremity failed outpatient doxycycline - NO leukocytosis - Tmax 99.9 (09/09) at 11PM - Vancomycin (09/09 - 09/10) - Zosyn (09/09 - 09/10) - ID consult appreciated recommending: Discontinue vancomycin Discontinue Zosyn Start Levaquin oral Start Doxy oral Start Diflucan oral Start nystatin for local application okay to discharge on about regimen for total of additional 10 days Counseled patient to keep the skin folds dry and clean at all times to prevent recurrent infections. - DVT prophylaxis with Lovenox while in hospital Chest pain, atypical - pt had episode of self limiting atypical chest pain - troponin NOT elevated - elevated D-dimer likely d/t infection - PE unlikely. Vitals stable, no tachycardia or hypoxia. - No c/o SOB. Asthma- not in acute exacerbation duonebs if needed GERD Protonix Morbid obesity recommend weight management diet patient to follow up with PCP after DC Pt Condition on Discharge: Stable Discharge Disposition: Discharge Home Discharge Instructions DIET: Follow Instructions for: Weight Management Activities you can perform: Regular-No Restrictions Follow up Referrals: PCP Follow-up - [address] Freedman New Medications: Doxycycline Hyclate (Doxycycline Hyclate) 100 Mg Cap 100 MG PO BID for antibiotic for 9 Days, #18 CAP 0 Refills Fluconazole (Diflucan) 100 Mg Tab 100 MG PO DAILY for antifungal, #9 TAB 0 Refills Levofloxacin (Levaquin) 500 Mg Tablet 500 MG PO DAILY for antibiotic, #9 TAB 0 Refills Nystatin Topical (Nystatin Topical) 100,000 unit/gm Cream 1 APPLIC TOPICAL Q12HR for fungal rash for 9 Days, #1 TUBE 0 Refills apply to affected area for a total of 10 days Continued Medications: Albuterol 18 GM Inh (Ventolin Hfa 18 GM Inh) 90 Mcg/Act Aer 2 PUFF INH Q4-6H PRN for SHORTNESS OF BREATH, #1 INHALER 0 Refills Albuterol Neb (Albuterol Neb) 2.5 Mg/0.5 Ml Neb 2.5 MG NEB Q4HR NEB PRN for SHORTNESS OF BREATH, EA Note: The Albuterol Sulfate Inhalation Solution is concentrated and must be diluted. Read complete instructions carefully before using. Ranitidine (Ranitidine) 150 Mg Tab 150 MG PO BID for Heartburn Management, #60 TAB 0 Refills Discontinued Medications: Doxycycline Hyclate (Doxycycline Hyclate) 100 Mg Cap 100 MG PO BID for Infection, CAP 0 Refills Furosemide (Furosemide) 20 Mg Tab 20 MG PO DAILY, #30 TAB 0 Refills Potassium Chloride ER (Potassium Chloride ER) 10 Meq Cap 10 MEQ PO DAILY for Electrolyte Replacement, #30 CAP 0 Refills Additional Information Patient examined. Assessment and plan formulated with Lucero Mansfield PA-C. I agree with the above. Lucero Mansfield Sep 11, 2017 10:03 Jae Wright DO Sep 13, 2017 00:34
[2017-09-11] MEDS: NYSTATIN 100,000 UNIT/GM CREAM 15 GM TOPICAL SCH (10:35)
[2017-09-11] MEDS: FLUCONAZOLE 100 MG TAB PO SCH (10:36)
[2017-09-11] MEDS: LEVOFLOXACIN 500 MG TAB PO SCH (10:36)
[2017-09-11] MEDS: PANTOPRAZOLE SOD 40 MG DELAYED RELEASE TAB PO SCH (10:36)
[2017-09-11] MEDS: DOXYCYCLINE HYCLATE 100 MG CAP PO SCH (10:36)
[2017-09-11] MEDS: traMADol HCL 50 MG TAB PO PRN (10:40)
[2017-09-11 12:00] VITALS: BP 128/75; PULSE 81; RESP 20; TEMP 95.8; O2SAT 99
== END 2017-09-11 14:46 | disposition home or self-care (01) | DRG 603 ==
LOC: NEPE 13:04 → NEDA 15:21 → NEPHCDU 16:51 → OBSVTOIN 09-10 13:17 → N07B 09-10 19:12
PROVIDERS: ADMIT Hospitalist; ATTEND Hospitalist
DX: L03.115 Cellulitis of right lower limb (principal); Z68.45 Body mass index [BMI] 70 or greater, adult; E66.01 Morbid (severe) obesity due to excess calories; J45.909 Unspecified asthma, uncomplicated; K21.9 Gastro-esophageal reflux disease without esophagitis; L30.4 Erythema intertrigo; R07.89 Other chest pain
CPT/HCPCS: 71010; 76937; 80048; 80053; 82550; 83036; 83605; 83735; 84484; 84702; 85025; 85379; 85610; 85730; 87040; 93005; 93971; G8987-GP; G8988-GP; J1650; J2270; J2405; J2543; J2920; J3370; J7030; J7050

== ENCOUNTER 2017-10-17 22:56 | Emergency (ER) | payer OTHER ==
[~2017-10-17] VITALS: Ht 170.2 cm; Wt 220.0 kg
[~2017-10-17 22:56] MED LIST changes: +ALBU.5I NEB; -CYCL1TAB29 PO; -DICL75TA PO; +DIFL100T PO; +DOXY100C PO; +LEVA500T33 PO; +NYST15T TOPICAL; +RANI150T PO; +VENTAER INH
[2017-10-17 22:58] VITALS: BP 172/93; PULSE 108; RESP 20; TEMP 97.8; O2SAT 98
[2017-10-17] MEDS ORDERED: SODIUM CHLOR 0.9% 1000 ML INJ 1,000 ML IV SCH (23:18)
--- NOTE | 2017-10-17 23:22 | PD ---
HPI Chief Complaint: Medical Clearance Time Seen by Provider: 23:15 Travel History International Travel<30 days: No Contact w/Intl Traveler<30days: No Traveled to known affect area: No History of Present Illness HPI 26-year-old female here for evaluation of generalized body aches, bilateral blurry vision, bilateral red eyes, nasal congestion. Patient reports that her body aches have been on for last 2 weeks. Blurry vision/red eyes have been going on for about a week. Her eyes also are pruritic. She tried over-the- counter eyedrops without relief. No fevers or chills. No headache. She feels nauseous but has not vomited. No cough. PFSH Past Medical History Asthma: Yes Cancer: No Cardiovascular Problems: No Diminished Hearing: No Endocrine: No Gastrointestinal Disorders: Yes GERD: Yes Genitourinary: No Immune Disorder: No Musculoskeletal: No Neurologic: No Psychiatric: No Reproductive: No Respiratory: Yes ?: Not LMP: 09/18/17 : 0 Past Surgical History Abdominal Surgery: Yes (CHOLECYSTECTOMY) Cholecystectomy: Yes Pacemaker: No Other Surgery: Yes Social History Alcohol Use: No Tobacco Use: No (never) Substance Use: No Allergies-Medications (Allergen,Severity, Reaction): Coded Allergies: No Known Allergies (Verified , 09/09/17) Reported Meds & Prescriptions Reported Meds & Active Scripts Active Reported Ventolin Hfa 18 GM Inh (Albuterol Sulfate) 90 Mcg/Act Aer 2 Puff INH Q4-6H PRN Ranitidine (Ranitidine HCl) 150 Mg Tab 150 Mg PO BID Albuterol Neb (Albuterol Sulfate) 2.5 Mg/0.5 Ml Neb 2.5 Mg NEB Q4HR NEB PRN Note: The Albuterol Sulfate Inhalation Solution is concentrated and must be diluted. Read complete instructions carefully before using. Review of Systems Except as stated in HPI: all other systems reviewed are Neg Physical Exam Narrative GENERAL: Well-developed, well-nourished, overweight, comfortable, no apparent distress. SKIN: Focused skin assessment warm/dry. No rash. HEAD: Atraumatic. Normocephalic. EYES: Pupils equal and round. No scleral icterus. Bilateral scleral injection with clear drainage. Corneas are clear. ENT: Mucous membranes pink and moist. NECK: Trachea midline. No JVD. CARDIOVASCULAR: Regular rate and rhythm. RESPIRATORY: No accessory muscle use. Clear to auscultation. Breath sounds equal bilaterally. GASTROINTESTINAL: Abdomen soft, non-tender, nondistended. MUSCULOSKELETAL: No obvious deformities. No clubbing. No cyanosis. No edema. NEUROLOGICAL: Awake and alert. No obvious cranial nerve deficits. Motor grossly within normal limits. Normal speech. PSYCHIATRIC: Appropriate mood and affect; insight and judgment normal. Data Data Last Documented VS Vital Signs Date Time Temp Pulse Resp B/P (MAP) Pulse Ox O2 Delivery O2 Flow Rate FiO2 10/17/17 22:58 97.8 108 20 172/93 (119) 98 Orders Orders Beta Hcg (Quant/Titer) (10/17/17 23:18) Complete Blood Count With Diff (10/17/17 23:18) Comprehensive Metabolic Panel (10/17/17 23:18) Urinalysis - C+S If Indicated (10/17/17 23:18) Iv Access Insert/Monitor (10/17/17 23:18) Ecg Monitoring (10/17/17 23:18) Oximetry (10/17/17 23:18) Sodium Chlor 0.9% 1000 Ml Inj (Ns 1000 M (10/17/17 23:18) Sodium Chloride 0.9% Flush (Ns Flush) (10/17/17 23:30) Influenzae A/B Antigen (10/17/17 23:18) Creatine Kinase (Cpk) (10/17/17 23:18) Polymyxin/Trimethop Opht Soln (Polytrim (10/17/17 23:30) Ketorolac Inj (Toradol Inj) (10/18/17 00:30) Labs Laboratory Tests Test 10/17/17 23:22 10/18/17 00:30 White Blood Count 9.3 TH/MM3 Red Blood Count 4.84 MIL/MM3 Hemoglobin 12.4 GM/DL Hematocrit 38.4 % Mean Corpuscular Volume 79.4 FL Mean Corpuscular Hemoglobin 25.7 PG Mean Corpuscular Hemoglobin Concent 32.3 % Red Cell Distribution Width 16.1 % Platelet Count 206 TH/MM3 Mean Platelet Volume 8.8 FL Neutrophils (%) (Auto) 55.4 % Lymphocytes (%) (Auto) 30.9 % Monocytes (%) (Auto) 8.3 % Eosinophils (%) (Auto) 4.5 % Basophils (%) (Auto) 0.9 % Neutrophils # (Auto) 5.1 TH/MM3 Lymphocytes # (Auto) 2.9 TH/MM3 Monocytes # (Auto) 0.8 TH/MM3 Eosinophils # (Auto) 0.4 TH/MM3 Basophils # (Auto) 0.1 TH/MM3 CBC Comment DIFF FINAL Differential Comment Blood Urea Nitrogen 11 MG/DL Creatinine 0.75 MG/DL Random Glucose 117 MG/DL Total Protein 7.9 GM/DL Albumin 3.3 GM/DL Calcium Level 8.7 MG/DL Alkaline Phosphatase 82 U/L Aspartate Amino Transf (AST/SGOT) 17 U/L Alanine Aminotransferase (ALT/SGPT) 25 U/L Total Bilirubin 0.3 MG/DL Sodium Level 142 MEQ/L Potassium Level 3.8 MEQ/L Chloride Level 106 MEQ/L Carbon Dioxide Level 29.0 MEQ/L Anion Gap 7 MEQ/L Estimat Glomerular Filtration Rate 114 ML/MIN Total Creatine Kinase 184 U/L Human Chorionic Gonadotropin, Quant LESS THAN 1 MIU/ML Urine Color YELLOW Urine Turbidity HAZY Urine pH 6.0 Urine Specific [place] 1.024 Urine Protein NEG mg/dL Urine Glucose (UA) NEG mg/dL Urine Ketones NEG mg/dL Urine Occult Blood NEG Urine Nitrite NEG Urine Bilirubin NEG Urine Urobilinogen LESS THAN 2.0 MG/DL Urine Leukocyte Esterase TRACE Urine RBC 2 /hpf Urine WBC 4 /hpf Urine Squamous Epithelial Cells 10 /hpf Urine Mucus FEW /lpf Microscopic Urinalysis Comment CULT NOT INDICATED MDM Medical Decision Making Medical Screen Exam Complete: Yes Emergency Medical Condition: Yes Medical Record Reviewed: Yes Differential Diagnosis Conjunctivitis, rhabdomyolysis, viral illness, URI, metabolic abnormality Narrative Course Vital signs reviewed. Heart rate improved from 108-92 after a liter of normal saline IV. CBC is unremarkable. CMP is unremarkable. Beta hCG is negative. Total CK is 184. UA is not suggestive of UTI. The patient was given a liter normal saline IV, and IV Toradol, and on reassessment she is feeling improved and is sleeping comfortably. She has bilateral conjunctivitis. Plan is to start her on Polytrim eyedrops and have her follow-up with her primary care physician this week. She was informed on when to return to the emergency department. She verbalizes understanding and agreement with plan. Diagnosis Primary Impression: Conjunctivitis Qualified Codes: H10.33 - Unspecified acute conjunctivitis, bilateral Additional Impression: Myalgia Referrals: Primary Care Physician 3 days Additional Instructions: Follow-up with your primary care physician this week. Return to the emergency department for worsening symptoms or any other concerns. Scripts Polymyxin B-Trimethoprim Opth Drops (Polytrim Opth Drops) 10,000-0.1 Unit/Ml-% Soln 1 DROP EACH EYE Q6HR for Mgmt Bacterial Infection, #1 BOTTLE 0 Refills Prov: Francisco J Baird MD 10/18/17 Disposition: 01 DISCHARGE HOME Condition: Stable Francisco J Baird MD Oct 17, 2017 23:22
[2017-10-17] MEDS ORDERED: POLYMYXIN/TRIMETHOPRIM OPHT SOLN 10 ML BTL EACH EYE ONE (23:30)
[2017-10-17] MEDS ORDERED: SODIUM CHLORIDE 0.9% FLUSH 10 ML FLUSH IV FLUSH PRN (23:30)
[2017-10-17 23:43] LABS: AUTOMATED NEUTROPHIL # 5.1 TH/MM3 (1.8-7.7); BASOPHIL # 0.1 TH/MM3 (0-0.2); BASOPHIL % 0.9 % (0.0-2.0); EOSINOPHIL # 0.4 TH/MM3 (0-0.4); EOSINOPHIL % 4.5 % (0.0-4.0); HEMATOCRIT 38.4 % (35.0-46.0); HEMO FLAGS DIFF FINAL; LYMPH % 30.9 % (9.0-44.0); LYMPHOCYTE # 2.9 TH/MM3 (1.0-4.8); MEAN CELL VOLUME 79.4 FL (80.0-100.0); MEAN CORPUSCULAR HEMOGLOBIN 25.7 PG (27.0-34.0); MEAN CORPUSCULAR HGB CONC 32.3 % (32.0-36.0); MONO % 8.3 % (0.0-8.0); NEUT % 55.4 % (16.0-70.0); PLATELET COUNT 206 TH/MM3 (150-450); RED BLOOD COUNT 4.84 MIL/MM3 (4.00-5.30); RED CELL DISTRIBUTION WIDTH 16.1 % (11.6-17.2); WHITE BLOOD COUNT 9.3 TH/MM3 (4.0-11.0)
[2017-10-18] LABS: ANION GAP 7 MEQ/L (5-15); AST (GOT) 17 U/L (15-37); BLOOD UREA NITROGEN 11 MG/DL (7-18); CHLORIDE 106 MEQ/L (98-107); GLOMERULAR FILTRATION RATE 114 ML/MIN (>89); POTASSIUM 3.8 MEQ/L (3.5-5.1); SODIUM (NA) 142 MEQ/L (136-145)
[2017-10-18 00:04] LABS: ALKALINE PHOSPHATASE 82 U/L (45-117); ALT (GPT) 25 U/L (10-53); BETA HCG QUANT LESS THAN 1 MIU/ML (0-5); CREATINE KINASE 184 U/L (26-192); TOTAL BILIRUBIN ADULT 0.3 MG/DL (0.2-1.0)
[2017-10-18] MEDS ORDERED: KETOROLAC TROMETHAMINE 30 MG/ML (IVP) VIAL IV PUSH ONE (00:30)
[2017-10-18 00:50] LABS: BLOOD, URINE NEG (NEG); COMMENT (UR) CULT NOT INDICATED; CULTURE IF INDICATED CULT NOT INDICATED; GLUCOSE,URINE NEG (NEG); KETONE, URINE NEG (NEG); MUCUS URINE FEW /lpf (OCC); NITRITE,URINE NEG (NEG); SQUAMOUS EPITHELIAL CELL URINE 10 /hpf (0-5); URINE COLOR YELLOW (YELLW/STRAW)
[2017-10-18] MEDS ORDERED: POLY10O EACH EYE (01:11)
[2017-10-18 01:15] VITALS: BP 123/73
== END 2017-10-18 01:22 | disposition home or self-care (01) ==
LOC: NEPC 22:56
DX: H10.9 Unspecified conjunctivitis (principal); M79.1 Myalgia; R09.81 Nasal congestion; J45.909 Unspecified asthma, uncomplicated; K21.9 Gastro-esophageal reflux disease without esophagitis; Z79.51 Long term (current) use of inhaled steroids
CPT/HCPCS: 80053; 81001; 82550; 84702; 85025; 87804; 96361; 96374; 99284; J1885; J7030

== ENCOUNTER 2018-02-23 22:51 | Emergency (ER) | payer SELFPAY ==
[~2018-02-23] VITALS: Ht 170.2 cm; Wt 232.1 kg
[~2018-02-23 22:51] MED LIST changes: -DIFL100T PO; -DOXY100C PO; -LEVA500T33 PO; -NYST15T TOPICAL; +POLY10O EACH EYE
[2018-02-23 23:01] VITALS: BP 188/95; PULSE 87; RESP 24; TEMP 98.1; O2SAT 100
[2018-02-23] MEDS ORDERED: CIPROFLOXACIN 0.3% OPTH SOLN 2.5 ML BTL EACH EYE ONE (23:45)
--- NOTE | 2018-02-23 23:46 | PD ---
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 Patient says she has a sore throat as well and she denies fever and denies any sick contact her only complaint is bilateral eye tearing and pain in the sore throat bilateral no other complaints at this time she is afebrile she has no shortness of breath past medical history is asthma and she is morbidly obese otherwise she is healthy 27-year-old [facility] Past Medical History Asthma: Yes Cancer: No Cardiovascular Problems: No Diminished Hearing: No Endocrine: No Gastrointestinal Disorders: Yes GERD: Yes Genitourinary: No Immune Disorder: No Musculoskeletal: No Neurologic: No Psychiatric: No Reproductive: No Respiratory: Yes Tetanus Vaccination: Unknown Influenza Vaccination: No ?: Not LMP: 11/15/2017 : 0 Past Surgical History Abdominal Surgery: Yes (CHOLECYSTECTOMY) Cholecystectomy: Yes Pacemaker: No Other Surgery: Yes Social History Alcohol Use: No Tobacco Use: No (never) Substance Use: No Allergies-Medications (Allergen,Severity, Reaction): Coded Allergies: No Known Allergies (Verified Allergy, Unknown, 02/24/18) Reported Meds & Prescriptions Reported Meds & Active Scripts Active No Active Prescriptions or Reported Medications Review of Systems Except as stated in HPI: all other systems reviewed are Neg General / Constitutional: Positive: Chills Eyes: Positive: Photophobia, Redness HENT: Positive: Sore Throat Physical Exam Narrative GENERAL: Patient is morbidly obese when I come to the room she is holding her eyes tightly shut and tearing and she is not opening her eyes and I am trying to examine her SKIN: Warm and dry. HEAD: Atraumatic. Normocephalic. EYES: Pupils equal and round. No scleral icterus. No injection or drainage. When I manually open up her sclerae said they are bilaterally injected however her pupils are equal reactive full range of motion, when I distract her with talking about her throat she opens her eyes with no difficulty --they are injected bilateral ENT: No nasal bleeding or discharge. Mucous membranes pink and moist. Posterior pharynx is red and her tonsils are enlarged with slight exudate NECK: Trachea midline. No JVD. Slight lymphadenopathy CARDIOVASCULAR: Regular rate and rhythm. RESPIRATORY: No accessory muscle use. Clear to auscultation. Breath sounds equal bilaterally. GASTROINTESTINAL: Abdomen morbidly obese soft, non-tender, . Hepatic and splenic margins not palpable. MUSCULOSKELETAL: Extremities morbidly obese without clubbing, cyanosis, or edema. No obvious deformities. NEUROLOGICAL: Awake and alert. No obvious cranial nerve deficits. Motor grossly within normal limits. Five out of 5 muscle strength in the arms and legs. Normal speech. PSYCHIATRIC: Appropriate mood and affect; insight and judgment normal. Data Data Last Documented VS Orders Orders Group A Rapid Strep Screen (02/23/18 23:42) Influenzae A/B Antigen (02/23/18 23:42) Ciprofloxacin 0.3% Opth Soln (Ciloxan 0. (02/23/18 23:45) Ibuprofen (Motrin) (02/24/18 00:15) Strep Culture (Group A) (02/23/18 23:55) Ed Discharge Order (02/24/18 02:19) MDM Medical Decision Making Medical Screen Exam Complete: Yes Emergency Medical Condition: Yes Differential Diagnosis Conjunctivitis viral versus conjunctivitis bacterial versus allergic reaction versus photophobia versus stress of a new job versus influenza versus strep pharyngitis other Narrative Course flu neg strep negative topical optho drop given cipro Diagnosis Primary Impression: Conjunctivitis Qualified Codes: H10.30 - Unspecified acute conjunctivitis, unspecified eye Scripts No Active Prescriptions or Reported Meds Disposition: 01 DISCHARGE HOME Condition: Lamont Kang MD Feb 23, 2018 23:46
[2018-02-24] MEDS ORDERED: IBUPROFEN 600 MG TAB PO ONE (00:15)
== END 2018-02-24 02:46 | disposition home or self-care (01) ==
LOC: NEPE 22:51
DX: H10.9 Unspecified conjunctivitis (principal); J02.9 Acute pharyngitis, unspecified; J45.909 Unspecified asthma, uncomplicated; K21.9 Gastro-esophageal reflux disease without esophagitis; E66.01 Morbid (severe) obesity due to excess calories
CPT/HCPCS: 87081; 87804; 87880; 99283